=== PATIENT | male | born 1940 | race Caucasian/White ===

== ENCOUNTER 2024-09-20 09:03 | Emergency (ER) | payer OTHER, SELFPAY ==
[2024-09-20] VITALS (9 sets, daily range): BP systolic 97–179; BP diastolic 60–113; PULSE 70–90; BMI 25.1
[2024-09-20 09:41] LABS: % Basophils 2.1 % (0-2); % Eosinophils 2.3 % (0-6); % Immature Granulocytes 0.2 % (0-0.5); % Lymphocytes 16.4 % (20.5-51.1); % Monocytes 8.3 % (1.7-9.3); % Neutrophils 70.7 % (42.2-75.2); Absolute Basophils 0.1 10^3/uL (0-0.2); Absolute Eosinophils 0.1 10^3/uL (0-0.7); Absolute Lymphocytes 0.9 10^3/uL (1.2-3.4); Absolute Monocytes 0.4 10^3/uL (0.1-0.6); Absolute Neutrophils 3.7 10^3/uL (1.4-6.5); Hemoglobin 14.2 g/dL (13.0-18.0); Mean Corp Hgb Conc. 34.6 g/dL (33.0-37.0); Mean Corpuscular Hgb 32.5 pg (27.0-31.0); Mean Corpuscular Volume 93.8 fL (80.0-94.0); Nucleated Red Blood Cells % 0 % (-); Platelet Count 278 10^3/uL (130-400); Red Blood Cell Count 4.37 10^6/uL (4.70-6.10); White Blood Cell Count 5.2 10^3/uL (4.8-10.8)
[2024-09-20 09:48] LABS: ALT (SGPT) 19 U/L (0-50); AST (SGOT) 30 U/L (17-59); Albumin 4.6 g/dl (3.5-5.0); Alkaline Phosphatase 53 U/L (38-126); Blood Urea Nitrogen 14 mg/dl (9-20); Calcium 10.4 mg/dl (8.4-10.2); Carbon Dioxide 28 mmol/L (22-30); Chloride 104 mmol/L (98-107); Glucose 96 mg/dl (70-99); Potassium 4.3 mmol/L (3.5-5.1); Sodium 142 mmol/L (135-145); Total Bilirubin 0.8 mg/dl (0.2-1.3); Total Protein 7.4 g/dl (6.3-8.2); eGFR > 60.00
--- NOTE | 2024-09-20 10:00 | ED.GENMED ---
History of Present Illness
General
Chief Complaint: Fainting/Passed Out
Source: patient
Exam Limitations: none
Time Seen by Provider: 09/20/24 09:29
Nursing documentation reviewed up to this point in time: agreed with
History of Present Illness
History of Present Illness:
83-year-old male presenting to the emergency department today with concerns of 3 syncopal episodes a few weeks ago. No symptoms since no chest pain shortness of breath nausea vomiting numbness weakness since. He claims that he spoke with some
friends today that prompted him to come to the ER for assessment.
Past History
Past History
ED Past Medical History: None
ED Past Surgical History: None
Social History
Tobacco: Non-smoker
Review of Systems
Review of Systems
Allergies reviewed?: Yes
All Other Systems: ROS reviewed and negative except as documented in HPI and ROS
Phy Exam
Physical Exam
Physical Exam:
GENERAL: Alert , in no apparent distress
EYE: pupils equal and reactive
NECK: Supple, no significant adenopathy.
ENT: o/p clr, mmm.
CARDIAC: Regular rate and rhythm .
LUNGS: Clear breath sounds bilaterally, no acute respiratory distress, no wheezes/rales/rhonchi
ABDOMEN: Soft, without focal tenderness, no r/g, no cvat
NEUROLOGICAL: Alert and oriented, no focal neuro deficits
SKIN: Warm and dry, skin intact.
MUSCULOSKELETAL: No edema, well perfused.
PSYCH: Normal and appropriate interaction.
Course
Orders/Labs/Results
Orders:
Orders
09/20/24 09:05
Electrocardiogram (*1) Urgent
Reason for Study: Syncope
EKG- Treatment ONCE
09/20/24 09:30
Troponin I Urgent
09/20/24 09:31
CMP [Comprehensive Metabolic Panel] Urgent
Complete Blood Count/With Diff Urgent
09/20/24 12:22
Orthostatic VS- Treatment ONCE
Abnormal Lab Results
09/20/24
09:31
RBC 4.37 L 10^6/uL
(4.70-6.10)
MCH 32.5 H pg
(27.0-31.0)
Absolute Lymphs (auto) 0.9 L 10^3/uL
(1.2-3.4)
Lymphocytes % 16.4 L %
(20.5-51.1)
Basophils % 2.1 H %
(0-2)
Calcium 10.4 H mg/dl
(8.4-10.2)
09/20/24 09:31
09/20/24 09:31
Vital Signs
Initial and Last Documented VS:
Initial Vital Signs
Temp Pulse Resp BP
98.2 F 65 16 179/103
09/20/24 09:15 09/20/24 09:15 09/20/24 09:15 09/20/24 09:15
Last Documented Vital Signs
Temp Pulse Resp BP Pulse Ox
98.2 F 47 15 136/80 97
09/20/24 09:15 09/20/24 13:00 09/20/24 13:00 09/20/24 13:00 09/20/24 13:00
MDM/Problems Addressed
MDM/Problems Addressed:
83-year-old male presenting to the emergency department with concerns of 3 syncopal episodes a few weeks ago no ongoing symptoms since. No chest pain shortness breath or palpitations associated. No trauma sustained. On arrival blood pressure
elevated otherwise vital signs are normal. Labs unremarkable. EKG did have sinus arrhythmia and some brief pauses. The case was discussed with cardiology they came and see the patient and started him on a monitor and schedule close outpatient
follow-up otherwise he was doing well throughout the ER stay. Return precautions given.
*Critical Care Note
Total Time (30-74mins, 75-104mins- exclusive of procedures): Not Applicable
ED Attending Note
-
Portions of this chart may have been created with voice recognition software.� Occasional wrong word or��sound alike� substitutions may have occurred due to the inherent limitations of voice recognition software.
Discharge Plan
Departure
Patient Disposition: Home (Routine Discharge)
Date of Disposition: 09/20/24
Time of Disposition: 13:22
Patient with high blood pressure during this ER visit?: No
Condition: Good
Covid-19: Not Applicable
Discharge Problem:
Sinus arrhythmia
Instructions: Syncope (Fainting) (DC)
Prescriptions:
No Action
cholecalciferol (vitamin D3) [Vitamin D3] 1,000 UNIT capsule
1,000 unit PO DAILY
sennosides [senna] 1 TABLET tablet
2 tab PO BID 0RF
docusate sodium 100 MG capsule
100 mg PO BID 0RF
lorazepam 1 MG tablet
1 mg PO Daily PRN (Reason: anxiety/pain) Qty: 20 0RF
hydrocodone-acetaminophen [Leslie] 1 EACH tablet
1 ea PO Q6H PRN (Reason: moderate-severe pain) Qty: 30 0RF
Rx Instructions:
Take 1 tablet every 6 hours as needed for moderate-severe pain
acetaminophen 500 MG tablet
500 mg PO QID Qty: 1 0RF
Rx Instructions:
standing order
Referrals:
Rk Keating MD [Active] - Follow up in 5-7 days
Kami Borges PA-C [Specified Professional Personl] - 10/11/24 2:00 pm (You have a cardiology follow-up appointment at the [place] office. Please call with questions)
Horace Mccarthy DO [Family Provider] -
Activity Restrictions/Additional Instructions:
You came to the emergency department today with concerns of syncopal episodes. Here you are found to have some brief pauses in your cardiac rhythm. You are placed in a monitor and will need to follow-up closely with cardiology. Return to the
emergency department for any worsening, new or concerning symptoms.
Interventions
Interventions:
*Risk Screen - Suicide Last Done: 09/20/24 09:15
*General Assessment Last Done: 09/20/24 09:15
*Neglect/Abuse Screening Last Done: 09/20/24 09:15
*ED COVID-19 Vaccine History Last Done: 09/20/24 10:35
Discharge Date and Time
Print Language: UKRAINIAN
[2024-09-20 11:10] LABS: Troponin I < 0.012 ng/ml
--- NOTE | 2024-09-20 12:41 | CON.CAR ---
Addendum entered and electronically signed by Rk Keating MD 09/20/24 16:19:
I saw and examined the patient.
The Clasp Machine Operator's note was reviewed and I agree with the note.
Comment: Briefly, 83-year-old man past medical history of mild cognitive impairment who presents for evaluation after multiple syncopal episodes which have occurred over approximately 4 to 6 weeks. We are asked to comment on possible cardiac cause
of these episodes.
Patient is unfortunately a poor historian which makes ascertaining the cause of these episodes difficult
Tells me the last syncopal episode was several weeks ago at this point and overall he feels well today
Physical exam is unremarkable
Twelve-lead ECG and telemetry reviewed, they show sinus arrhythmia, but no significant pauses or high-grade AV block noted
To to further evaluate for arrhythmias we will place 1 week outpatient gambling monitor today in the ER prior to discharge
Consider outpatient transthoracic echocardiogram, to be discussed at follow up
Cardiology follow-up arranged
Rest per Nanci Garcia
Original Note:
Consultation
Consultation Request
Date/Time Consultation Performed: 09/20/24
Requesting Provider: Foreign Truong PA-C
Performing Provider: Nanci Garcia PA-C for Dr. Keating
Reason for Consultation: syncope, recurrent
Medical History
-
Chief Complaint: syncope
History of Present Illness:
Patient is an 83 yo M with PMH of HLD, s/p lumbar laminectomy 2020, spinal stenosis, OA who presented to [facility] ER upon referral from his primary care physician for evaluation of syncopal events. Patient is a poor historian, and does
admit to having some memory issues, although no definitive diagnosis of dementia at the present time. Who lives alone independently. A neighbor/friend accompanies him to the ER today. He reports approximately 4 weeks ago he had an episode of
presumed syncope while he was biking home from [facility]. He reports he was standing at a red light waiting to continue biking, and looked down and felt like his feet were moving. He then states he woke up on the ground. He states he 'popped right
back up', got back on his bike and rode home without difficulty or recurrence of symptoms. He states then for several weeks he had no recurrences until approximately 2 weeks ago. He reports in the middle of the night, he was trying to get out of
bed. He does recall being 'wrapped up in the sheets' and then states he felt versus had syncopal event when he stood up, although reports he was 'still asleep'. Then several days later had another episode in the living room where he felt as though
he was trying to grab onto something and ended up holding onto a light stand and falling versus syncope. He denies prodrome with clear lightheadedness or dizziness. He reports no chest pain, shortness of breath, palpitations. He denies recent
medication changes, dietary changes, new supplements. He denies significant alcohol use. Reports he has had worsening back pain in the last 3 to 4 months, however generally this has not limited his activity, and did not have pain preceding his
fall/syncopal episodes. Denies cardiac history. Cardiology consulted for evaluation.
PMH:
HLD
Spinal stenosis
OA
History of lumbar laminectomy 2020
Memory issues
Past Medical History
Past Medical History: Other (in HPI)
Social History
Tobacco: Non-Smoker
Living: Alone
Employment: Retired
Family History
Family History: CAD (CABg in father)
Allergies / Home Medications
Allergy/AdvReac Type Severity Reaction Status Date / Time
No Known Allergies Allergy Verified 09/20/24 09:15
�Medication �Instructions �Recorded �Confirmed �Type
cholecalciferol (vitamin D3) 25 1,000 unit PO DAILY 11/13/19 11/21/19 History
mcg (1,000 unit) capsule (Vitamin
D3)
acetaminophen 500 mg tablet 500 mg PO QID #1 tab 11/22/19 Rx
docusate sodium 100 mg capsule 100 mg PO BID 11/22/19 Rx
hydrocodone 10 mg-acetaminophen 1 ea PO Q6H PRN moderate-severe 11/22/19 Rx
325 mg tablet ([place]) pain #30 tabs
lorazepam 1 mg tablet 1 mg PO Daily PRN anxiety/pain #20 11/22/19 Rx
tabs
sennosides 8.6 mg tablet (senna) 2 tab PO BID 11/22/19 Rx
Review of Systems
-
History Source: Patient and Other (friend)
All other systems: Negative unless noted
Physical Exam
Vital Signs
Temp Pulse Resp BP Pulse Ox
98.2 F 76 11 146/97 97
09/20/24 09:15 09/20/24 10:33 09/20/24 10:33 09/20/24 10:33 09/20/24 10:33
Lab Results
09/20/24 09:31
09/20/24 09:31
Troponin I < 0.012 ng/ml 09/20/24 09:30
Physical Exam
General: No Apparent Distress and Comfortable
HEENT: Normocephalic, Anicteric and Moist Mucous Membranes
Respiratory: Clear and Non Labored Respirations
Cardiac: S1/S2 and Regular Rhythm
GI: Soft, Non Tender, Non Distended and Normal Bowel Sounds
Musculoskeletal: No Clubbing, No Cyanosis and No Edema
Skin: Warm and Dry
Neuro: AO x 3
Impression / Plan
-
Primary Client Services Representative: none prior to admission
Assessment:
Presentation with recurrent fall vs syncope
Sinus arrhythmia
HLD
Spinal stenosis
OA
History of lumbar laminectomy 2019
Memory issues
Stress echo 2020: normal @10 METS of activity
Plan:
-Patient presents with 3 fall vs syncopal episodes in last ~4 weeks. etiology unclear at this time. patient a poor historian.
-Trop negative x1. no CP. EKG with sinus arrhythmia, no acute ST abnormalities
-last stress test from 2020 as above
-check ortho VS
-arranged for 1 week [place] monitor (concern for patient compliance with rhythm star monitor), to be placed prior to DC from ER
-we discussed no driving/biking until monitor resulted
-OP cardiac follow up arranged
-d/w patient and friend at bedside. d/w ER PA
Data Reviewed
-
EKG: Tracing Personally Visualized and interpreted
Medical Tests (Nuc Med, Echo etc): Report Reviewed by me
Labs: Labs Reviewed by me
Old Records: Reviewed
== END 2024-09-20 14:09 | disposition home or self-care (01) ==
LOC: EMR 09:03
PROVIDERS: Physician Assistant; EMERGENCY PHYSICIAN Emergency Medicine; FAMILY PHYSICIAN Internal Medicine
DX: I49.8 Other specified cardiac arrhythmias (principal); E78.00 Pure hypercholesterolemia, unspecified; M19.90 Unspecified osteoarthritis, unspecified site; M48.00 Spinal stenosis, site unspecified; Z60.2 Problems related to living alone; Z82.49 Family history of ischemic heart disease and other diseases of the circulatory system
CPT/HCPCS: 99283; 80053; 84484; 85025; 93005

== ENCOUNTER → 2025-01-02 10:23 | Outpatient (REF) | payer OTHER, SELFPAY | LOC: PAVMRI 10:23 | PROVIDERS: ATTENDING PHYSICIAN Internal Medicine | DX: R41.3 Other amnesia (principal) | CPT/HCPCS: 70551 ==

== ENCOUNTER → 2025-02-21 12:24 | Outpatient (REF) | payer OTHER, SELFPAY ==
[2025-02-21 13:48] LABS: Urine Albumin 2+ (Neg - Trace); Urine Bilirubin Negative (Negative); Urine Character Clear (Clear); Urine Color Yellow; Urine Glucose Negative (Negative); Urine Ketone Negative (Negative); Urine Leukocyte Negative (Negative); Urine Nitrite Negative (Negative); Urine Occult Blood Negative (Negative); Urine Urobilinogen Negative (Neg - 1+)
[2025-02-21 14:30] LABS: ALT (SGPT) 19 U/L (0-50); AST (SGOT) 28 U/L (17-59); Albumin 4.3 g/dl (3.5-5.0); Alkaline Phosphatase 69 U/L (38-126); Blood Urea Nitrogen 16 mg/dl (9-20); Calcium 10.4 mg/dl (8.4-10.2); Carbon Dioxide 27 mmol/L (22-30); Chloride 104 mmol/L (98-107); Glucose 85 mg/dl (70-99); HDL Cholesterol 49 mg/dl; LDL Cholesterol, Calculated 161 mg/dl; Potassium 4.7 mmol/L (3.5-5.1); Sodium 140 mmol/L (135-145); Total Bilirubin 1.4 mg/dl (0.2-1.3); Total Cholesterol 227 mg/dl (50-199); Total Protein 7.3 g/dl (6.3-8.2); Triglyceride 89 mg/dl (10-149); Very Low Density Lipoprotein 17 mg/dl (0-30); eGFR 59.63
[2025-02-21 15:00] LABS: Urine Bacteria Few (Negative); Urine Red Blood Cell 0-2 /HPF (0-2)
[2025-02-21 17:38] LABS: TSH 3.25 uIU/ml (0.47-4.68)
[2025-02-21 18:14] LABS: Vitamin B12 254 pg/ml (239-931)
[2025-02-24 09:39] LABS: Intact PTH 101.7 pg/ml (13.6-85.8)
== END ==
LOC: REG 12:24
PROVIDERS: ATTENDING PHYSICIAN Internal Medicine
DX: E03.9 Hypothyroidism, unspecified (principal); E78.2 Mixed hyperlipidemia; N40.0 Benign prostatic hyperplasia without lower urinary tract symptoms; E21.3 Hyperparathyroidism, unspecified; R41.3 Other amnesia
CPT/HCPCS: 36415; 80053; 80061; 81003; 81015; 82607; 82746; 83970; 84443

== ENCOUNTER 2025-04-26 21:42 | Inpatient (IN) | payer OTHER, SELFPAY ==
[2025-04-26] VITALS (10 sets, daily range): BP systolic 98–146; BP diastolic 60–89; BMI 23.6
[2025-04-26 17:26] LABS: ALT (SGPT) 21 U/L (0-50); AST (SGOT) 29 U/L (17-59); Albumin 3.8 g/dl (3.5-5.0); Alkaline Phosphatase 60 U/L (38-126); Blood Urea Nitrogen 31 mg/dl (9-20); Calcium 10.1 mg/dl (8.4-10.2); Carbon Dioxide 24 mmol/L (22-30); Chloride 104 mmol/L (98-107); Estimated Creatinine Clearance 40 ml/min; Glucose 118 mg/dl (70-99); Potassium 3.9 mmol/L (3.5-5.1); Sodium 133 mmol/L (135-145); Total Bilirubin 1.5 mg/dl (0.2-1.3); Total Protein 6.6 g/dl (6.3-8.2); eGFR 45.62
--- NOTE | 2025-04-26 17:29 | ED.GENMED ---
History of Present Illness
General
Chief Complaint: Chest Pain
Source: patient
Time Seen by Provider: 04/26/25 17:18
History of Present Illness
History of Present Illness:
84-year-old male presents to the emergency room complaining of chest pain. Patient is accompanied by his son. Patient has some cognitive decline at baseline but son feels he is also a bit more confused than normal. Patient been complaining of
left-sided chest pain for the past day or so. He is also mention that he feels short of breath. Pain seems to be worse with deep breath. No significant cough or fever. No known trauma. Patient does not take any prescription medications.
Past History
Past History
ED Past Medical History: None
ED Past Surgical History: None
Social History
Tobacco: Non-smoker
Phy Exam
Physical Exam
Physical Exam:
General: Awake, Alert, Orientedx 2. No acute distress.
Vitals: unremarkable
Head: Atraumatic
Eyes: Pupils equal, EOMI
Throat: Airway intact, no exudates
Neck: Trachea midline
Chest: No significant tenderness palpation, no crepitance
Lungs: Clear and equal b/l
Heart: Regular rate, no murmurs
Abd: Soft, Nontender, No pulsatile mass
Neuro: Nonfocal
Skin: Warm, dry, no rash
Extremities: pulses equal b/l, no edema
Scores
Heart Score for Chest Pain Patients
STEMI patient?: Not applicable
Course
Orders/Labs/Results
Orders:
Orders
04/26/25 Dinner
Regular
At Your Request: Limited Participation
04/26/25 15:49
EKG [Electrocardiogram (*1)] Urgent
Reason for Study: Chest Pain
EKG- Treatment ONCE
04/26/25 16:49
CXR2 [CR Chest - 2 Views ] Urgent
Comment:
Reason For Exam: cp
04/26/25 16:59
Complete Blood Count/With Diff Urgent
Comprehensive Metabolic Panel Urgent
D-Dimer Urgent
Troponin I Urgent
04/26/25 17:55
CT Chest Angio W/wo Iv Contras Urgent
Comment:
Reason For Exam: chest pain, abd cxr
04/26/25 20:14
Cefepime HCl [Maxipime] 2,000 mg IV NOW STA
04/26/25 20:16
Urinalysis Reflex To Culture Urgent
Date Specimen was Collected: 04/26/25
Time Specimen was Collected: 20:11
Urine Microscopic Reflex Cult Urgent
04/26/25 20:18
CT Head W/o Iv Contrast Urgent
Comment:
Reason For Exam: confusion, altered mental status
04/26/25 20:26
Blood Culture Urgent
TJ Source: Blood/Venous
Specimen Description:
04/26/25 20:31
Blood Culture Q30M
TJ Source: Blood/Venous
Specimen Description:
04/26/25 20:39
Piperacillin/Tazo 3.375 Gram [Zosyn] 3.375 gram in 50 ml IV NOW
04/26/25 20:45
Blood Culture Q30M
TJ Source: Blood/Venous
Specimen Description:
04/26/25 20:53
Blood Culture Q30M
TJ Source: Blood/Venous
Specimen Description:
04/26/25 21:01
Admit/Transfer Patient As Directed
Co-Sign Provider:
Level of Care: Inpatient admission
Assign to:: Medical/Surgical
Physician / Group: Efrain
Diagnosis: Pneumonia
Reason for Hospitalization: Cavitary pneumonia
Expected length of stay greater than two midnights?: Yes
ELOS- Estimated Length of Stay in days: 2
I certify the patient meets the requirements for IP care: Yes
Vancomycin [Vancocin] 2,000 mg 0.9% Sodium Chloride 500 ml [Nss] 500 ml IV NOW
PRN Pain Medication Management As Directed
May give lesser potent ordered pain med per pt: Yes
preference::
Protocol:: Medication orders for pain may be administered in a
manner that supports deferring to patient preference
when the pt is:
- Requesting an ordered lesser potent pain medication.
Least to most potent pain medications are defined
as: acetaminophen < NSAID < tramadol < opioids
(morphine, oxycodone, hydromorphone).
- Requesting a lesser dose of the same medication IF
ORDERED.
- Requesting a less intrusive route of administration
if both routes are prescribed by the provider (PO <
IV).
04/26/25 21:02
Code Status As Directed
Resuscitation Status: Full Code
04/26/25 22:24
0.9% Sodium Chloride 1000 ml [Nss] 1,000 ml IV 100 mls/hr
Acetaminophen [Tylenol] 650 mg PO Q4HPRN PRN
Magnesium Hydroxide [Milk of Magnesia] 30 ml PO Q4HPRN PRN
Ondansetron Injectable [Zofran] 4 mg IV Q6HPRN PRN
VANCOMYCIN Pharmacy to Dose [VANCOCIN Pharmacy to Dose] 1 each Pharmacy To Prepare [Call Pharmacy To Prepare] 0 ml IV PER PROTOCOL
04/26/25 22:24
INFECTIOUS DISEASE CONSULT Routine
Consulting Provider: Emiliana Hansen
Was physician already notified: Yes
Reason for consult: cavitary pneumonia
Respiratory Culture/Gram Stain Urgent
TJ Source: Sputum
Specimen Description:
Activity As Directed
Activity Level: Out of Bed-Early Mobility
Intake/ Output As Directed
Frequency: Per unit guidelines
Orthostatic Vital Signs As Directed
Orthostatic VS Frequency: Daily
Vital Signs As Directed
Frequency: Per unit guidelines
Weight As Directed
Frequency: Once
Comment: on admission
Pulse Ox/cont/shift [RESP] Routine
Quantity: 1
Special Instructions: notify provider if SPO2 < 91%
Pt Eval And Treat Routine
Activity Level: With Assistance
DX Deep Vein Thrombosis Video Routine
04/26/25 22:35
Vancomycin MRSA PCR Screen Routine
TJ Source: N
Specimen Description:
Comment: Changed per pharmacy protocol
04/26/25 23:07
Legionella Urinary Antigen Routine
TJ Source: Urine
Specimen Description:
Strep pneumoniae Antigen Routine
TJ Source: Urine
Specimen Description:
04/27/25 04:00
Piperacillin/Tazo 3.375 Gram [Zosyn] 3.375 gram in 50 ml IV Q6H
04/27/25 05:30
Basic Metabolic Panel IN AM
CRP [C-Reactive Protein] IN AM
Complete Blood Count/No Diff IN AM
ESR [Erythrocyte Sed Rate] IN AM
TSH Reflex To Free T4 IN AM
04/27/25 08:00
Cholecalciferol (Vitamin D3) [VITAMIN D3 (cholecalciferol)] 50 mcg PO DAILY
04/27/25 18:00
Enoxaparin Sodium [Lovenox] 40 mg SC QPM
Abnormal Lab Results
04/26/25 04/26/25
16:59 20:16
WBC 22.6 H 10^3/uL
(4.8-10.8)
RBC 3.89 L 10^6/uL
(4.70-6.10)
Hgb 12.3 L g/dL
(13.0-18.0)
Hct 36.3 L %
(39.0-52.0)
MCH 31.6 H pg
(27.0-31.0)
Abs Immat Gran (auto) 1.4 H 10^3/uL
(0-0.05)
Absolute Neuts (auto) 19.2 H 10^3/uL
(1.4-6.5)
Absolute Lymphs (auto) 0.7 L 10^3/uL
(1.2-3.4)
Absolute Monos (auto) 1.3 H 10^3/uL
(0.1-0.6)
Immature Gran % 6.1 H %
(0-0.5)
Neutrophils % 84.7 H %
(42.2-75.2)
Lymphocytes % 3.2 L %
(20.5-51.1)
D-Dimer 10.36 H ug/mlFEU
(0.00-0.50)
Sodium 133 L mmol/L
(135-145)
BUN 31 H mg/dl
(9-20)
Creatinine 1.5 H mg/dL
(0.7-1.3)
Glucose 118 H mg/dl
(70-99)
Total Bilirubin 1.5 H mg/dl
(0.2-1.3)
Ur Occult Blood Reflex 3+ A
(Negative)
Urine Bacteria (Reflex) Few A
(Negative)
Urine Albumin (Reflex) 2+ A
(Neg - Trace)
04/26/25 16:59
04/26/25 16:59
Vital Signs
Initial and Last Documented VS:
Initial Vital Signs
Temp Pulse Resp Pulse Ox
98.8 F 102 16 96
04/26/25 16:02 04/26/25 16:02 04/26/25 16:02 04/26/25 16:02
Last Documented Vital Signs
Temp Pulse Resp BP Pulse Ox
98 F 83 16 129/88 96
05/01/25 15:00 05/01/25 15:00 05/01/25 15:00 05/01/25 15:00 05/01/25 15:00
MDM/Problems Addressed
Differential Diagnosis Includes:
pneumonia, PE, effusion, ptx
MDM/Problems Addressed:
84-year-old male presents complaining of chest pain and confusion and forgetfulness. Workup here reveals a significantly elevated white blood cell count. Patient's renal function has bumped up a bit from baseline with a BUN 31 and a creatinine
1.5. Chest x-ray shows perhaps a tiny effusion and prominence of the mediastinum. CT of the chest was ordered which shows cavitary lesions and a infiltrate suggestive of necrotizing pneumonia. Patient will require hospitalization for treatment of
this and further evaluation. Case discussed with infectious disease who recommends Unasyn.
*Radiology
Radiology exam reviewed: preliminary read by ED provider (Personally viewed patient's chest x-ray and I see small effusion) and radiology read reviewed
*Pulse Oximetry
SaO2: 96
Oxygen Mode of Delivery: Room air
Patient hypoxic: no
*Critical Care Note
Total Time (30-74mins, 75-104mins- exclusive of procedures): Not Applicable
ED Attending Note
-
Portions of this chart may have been created with voice recognition software.� Occasional wrong word or��sound alike� substitutions may have occurred due to the inherent limitations of voice recognition software.
Discharge Plan
Departure
Patient Disposition: Admit
Date of Disposition: 04/26/25
Time of Disposition: 20:23
Admit to: Med/Surg
Presentation/result/management discussed w/ accepting MD/DO: Hospitalist
Condition: Fair
Discharge Problem:
Cavitary pneumonia
Interventions
Interventions:
*Risk Screen - Suicide Last Done: 04/26/25 23:32
*General Assessment Last Done: 04/26/25 16:46
*Neglect/Abuse Screening Last Done: 04/26/25 16:46
*ED- Fall Risk Assessment Last Done: 04/26/25 16:46
*ED COVID-19 Vaccine History Last Done: 04/26/25 23:32
*Nursing Disposition Last Done: 04/26/25 22:12
ED- Cardiac Assessment Last Done: 04/26/25 16:50
Discharge Date and Time
Discharge Date/Time: 04/26/25 22:12
[2025-04-26 17:38] LABS: Troponin I 0.013 ng/ml
[2025-04-26 17:52] LABS: Hematocrit 36.3 % (39.0-52.0); Hemoglobin 12.3 g/dL (13.0-18.0); Mean Corp Hgb Conc. 33.9 g/dL (33.0-37.0); Mean Corpuscular Hgb 31.6 pg (27.0-31.0); Mean Corpuscular Volume 93.3 fL (80.0-94.0); Mean Platelet Volume 9.6 fL (7.4-10.4); Platelet Count 178 10^3/uL (130-400); Red Blood Cell Count 3.89 10^6/uL (4.70-6.10); Red Cell Dist. Width 12.4 % (11.5-14.5); White Blood Cell Count 22.6 10^3/uL (4.8-10.8)
[2025-04-26 18:07] LABS: % Basophils 0.2 % (0-2); % Immature Granulocytes 6.1 % (0-0.5); % Lymphocytes 3.2 % (20.5-51.1); % Monocytes 5.8 % (1.7-9.3); % Neutrophils 84.7 % (42.2-75.2); Absolute Basophils 0.1 10^3/uL (0-0.2); Absolute Immature Granulocytes 1.4 10^3/uL (0-0.05); Absolute Lymphocytes 0.7 10^3/uL (1.2-3.4); Absolute Monocytes 1.3 10^3/uL (0.1-0.6); Absolute Neutrophils 19.2 10^3/uL (1.4-6.5); Nucleated Red Blood Cells % 0 % (-)
[2025-04-26 18:42] LABS: D-Dimer 10.36 ug/mlFEU (0.00-0.50)
--- NOTE | 2025-04-26 20:30 | HPS.HSE ---
Family Physician
-
Family Physician: Horace Mccarthy
Chief Complaint
-
Chest pain
History of Present Illness
This is a 84-year-old male presenting to the emergency department with a complaint of pleuritic chest pain.
Patient is quite confused at this time and history obtained from son. Patient is generally healthy and lives by himself and independent with ADLs. He is on no medications. He was last evaluated by physician a year ago for syncopal episodes with
extensive workup that was found to be negative
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 Son reports that patient has had recent episodes of forgetfulness in terms of when he places things but otherwise remembers all know names and faces. In the
last 2 days he has had significant decline in capacity. He appears confused and lethargic and unable to perform his ADLs. Son reported that the patient has been having trouble with deep inspiration complained of left-sided chest pain that is
pleuritic in nature. He appears to have increased shortness of breath and dyspnea on exertion but was not hypoxic at home. He has not been febrile. He has not had any known cough productive or otherwise. He has no recent travel. He has no known
sick contacts. Occupational history unknown at this time. He is a non-smoker and does not drink alcohol. He does report poor dentition.
In the emergency department the patient is afebrile, is satting 93% on room air. Blood pressure was 140/80 with a pulse of 101.
ECG shows normal sinus rhythm at a rate of [address] or T wave changes. Troponin was negative. D-dimer was elevated.
CBC shows marked leukocytosis 22.6 with left shift otherwise unremarkable. Electrolytes notable for sodium of 133 with otherwise normal potassium and chloride and bicarb. BUN and creatinine stable at 1 and 1.5.
Chest x-ray mostly unremarkable with some prominence of the ascending aorta.
CT of the chest with angiogram revealed several bilateral cavitary lesions throughout the lungs of likely infectious etiology. There is no PE. There is suggestions of moderate left lower lobe pneumonia. There are tiny pleural effusions left
lateral right.
Medical History
Past Medical History
Past Medical History: Reports None
Past Surgical History: Reports None
Social History
Tobacco: Non-smoker
Alcohol: None
Drug: None
Personal:
Living: Alone
Employment: Retired
Family History
Family History: Not pertinent
Allergies / Home Medications
Allergies reflects when Allergies were last updated in [employer].
Home Medications with original date entered in [employer]
Allergy/Medication List:
Allergies
Allergy/AdvReac Type Severity Reaction Status Date / Time
No Known Allergies Allergy Verified 04/26/25 16:45
Home Medications
cholecalciferol (vitamin D3) 50 mcg (2,000 unit) capsule 50 mcg PO DAILY 04/26/25
Review of Systems
-
History Source: Family
Constitutional: Reports No Symptoms
EENT: Reports No Symptoms
Respiratory: Reports Trouble Breathing
Cardiac: Reports No Symptoms
Abdomen/GI: Reports No Symptoms
: Reports No Symptoms
Musculoskeletal: Reports No Symptoms
Skin: Reports No Symptoms
Neurological: Reports No Symptoms
Endocrine: Reports No Symptoms
Hematologic/Lymphatic: Reports No Symptoms
Psych: Reports No Symptoms
Physical Exam
Vital Signs
Vital Signs
Temp Pulse Resp BP Pulse Ox
98.8 F 101 23 143/81 96
04/26/25 16:02 04/26/25 19:00 04/26/25 19:00 04/26/25 18:48 04/26/25 17:32
Physical Exam
General: Well Developed, Well Nourished and Conversant; No Respiratory Distress
HEENT: NormoCephalic, Anicteric, Moist mucous membranes, Atraumatic, PERRLA and Neck Nontender; No Good Dentition, Pharyngeal Erythema, Neck Mass or Oxygen
Respiratory: Clear, Non Labored Respirations and Other (chest pain induced with deep inspiration); No Wheezes, Rales, Rhonchi or Crackles
Cardiac: S1/S2 and Regular Rhythm
Breast: Deferred by me
GI: Soft, Non Tender and Non Distended
Rectal: Deferred by Provider
Genito-urinary: Deferred by me
Musculoskeletal: No Clubbing, No Cyanosis and No Edema
Skin: Warm
Neuro: Alert, Oriented (oriented to person and place only) and Nonfocal/grossly intact
Hematologic/Lymphatic: No Lymphadenopathy
Psych: Calm
Laboratory Results
-
04/26/25 16:59
04/26/25 16:59
Laboratory Results
Total Bilirubin 1.5 mg/dl (0.2-1.3) H 04/26/25 16:59
AST 29 U/L (17-59) 04/26/25 16:59
ALT 21 U/L (0-50) 04/26/25 16:59
Alkaline Phosphatase 60 U/L (38-126) 04/26/25 16:59
Troponin I 0.013 ng/ml 04/26/25 16:59
Data Reviewed
-
Diagnostic Radiology: Report Reviewed by me
CT Scan: Report Reviewed by me
Medical Tests (Nuc Med, Echo, EKG etc): Image Personally Visualized and interpreted
Lab Data: Labs Reviewed by me
Old Records: Reviewed
Impression/Plan
-
IMPRESSION:
84-year-old with no known significant past medical history presents to the emergency department With 2 Days of Worsening Confusion, Lethargy Shortness of Breath and Pleuritic Chest Pain. He is actually quite stable in the emergency department
afebrile, hemodynamically stable and not on supplemental oxygen. Did have elevated D-dimer. No ischemia on ECG. Chest x-ray is nonacute. CT angio of the chest without pulmonary embolism. There where several bilateral cavitary lesions throughout
the lungs of likely infectious origin. There is also findings suggestive of moderate left lower lobe pneumonia. There is trace bilateral pleural effusions larger on the left. Patient has significant leukocytosis of 22.6 with a moderate left
shift. His labs are otherwise unremarkable except for possibly mild dehydration.
Son reported that the patient lives in a damp apartment with concern for mold. Patient has not known to have recent cough, watery eyes, runny nose or other allergic symptoms. There was no wheezing on my exam. No peripheral eosinophilia.
PLAN:
1. Cavitary pneumonia - Given findngs on history and CT scan, diff dgx includes necrotizing pneumonia, nocardiosis and less likely septic embolism. Unlikely TB given no known risk factors or exposure. Cannot rule out malignancy but unlikely to
produce such an acute presentation.
- patient stable, admit to med/surg inpatient
- blood cultures sent
- no sputum for culture but will order
- check legionella ag/ pneumococcal ag
- despite additional concern from son, clinical picture and CT scan does not raise a high concern for cavitary or invasive aspergillosis, will consult ID
- continue zosyn, vanc for now
- mrsa swab
- check ESR/CRP
- Gentle hydration, supportive measures and pain control
2. Hyponatremia - suspect mostly due to dehydration but cannot rule out SIADH from pulmonary process
- hydrate overnight
3. JANAK - No h/o CKD/BPH
- IV fluids for now post contrast exposure
4. Confusion - No focal deficits. A&Ox2 (x3 at baseline). Suspect toxic/metabolic encephalopathy
- IV abx and hydration as above
DVT PPX - lovenox sq
Code status - Full code, D/W son Mr Axel Larkin
[2025-04-26 20:38] LABS: Urine Albumin 2+ (Neg - Trace); Urine Bilirubin Negative (Negative); Urine Character Clear (Clear); Urine Color Yellow; Urine Glucose Negative (Negative); Urine Ketone Negative (Negative); Urine Leukocyte Negative (Negative); Urine Nitrite Negative (Negative); Urine Occult Blood 3+ (Negative); Urine Urobilinogen 1+ (Neg - 1+); Urine pH 6.5 (5.0-9.0)
[2025-04-26 20:50] LABS: Urine Bacteria Few (Negative); Urine Red Blood Cell 0-2 /HPF (0-2); Urine Squamous Cell 0-2 /LPF (Few); Urine White Cell 0-2 /HPF (0-5)
[2025-04-26] MEDS: ZOSYN 50 IV (20:57)
[2025-04-26] MEDS: VANCOCIN 540 MG IV (21:40)
--- NOTE | 2025-04-26 21:42 | EDRN ---
call the patients son Norman at [phone] with any questions
[2025-04-26] MEDS: NSS 1000 IV (22:33)
--- NOTE | 2025-04-26 22:42 | PHA.VAN.IN ---
Assessment
- Assessment
Renal Function: SCR Appears Elevated from baseline (02/21/25 BASELINE SCR: 1.2)
Plan
- Plan
Initial / Loading Dose: 2GM
Maintenance Regimen: DOSING BY RANDOM LEVEL
Monitoring: RANDOM VANCOMYCIN LEVEL 04/27/25
Pharmacokinetics Vancomycin I
- -
Patient Age: 84
Patient Sex: Male
Vancomycin Day #: 1
Indication: Pulmonary/Respiratory
Requesting Provider: SARAH
Height / Weight:
Height 6 ft
Actual Weight 78.8 kg
- Vital Signs / Lab Results
Temp Pulse Resp BP Pulse Ox
97.9 F 93 18 133/87 97
04/26/25 22:29 04/26/25 22:29 04/26/25 22:29 04/26/25 22:29 04/26/25 22:29
Lab Results - Hematology
04/26/25
16:59
WBC 22.6 H
Lab Results - Chemistry
04/26/25
16:59
BUN 31 H
Creatinine 1.5 H
Estimated Creat Clear 40
Albumin 3.8
Lab Results - Urine
04/26/25
20:16
Urine Nitrite (Reflex) Negative
Leukocyte Esterase Rfl Negative
Urine WBC (Reflex) 0-2
Ur Squamous Epith Cells 0-2
Urine Bacteria (Reflex) Few A
--- NOTE | 2025-04-26 23:30 | PTCARENOTE ---
Received pt from ED to around 2230. pt on stretcher, confused, but able to ambulate to bed with assistance. bed alarm placed under pt due to confusion. pt only oriented to self. pt assessed, vitals obtained-see flowsheets. Pts call maier within
reach. attempted to educate on calling for assistance. Will continue to monitor.
[2025-04-27] MEDS: ZOSYN 50 IV ×4 (03:22→23:43)
[2025-04-27 04:53] VITALS: BMI 24.5
[2025-04-27 06:31] LABS: Hematocrit 36.2 % (39.0-52.0); Hemoglobin 12.5 g/dL (13.0-18.0); Mean Corp Hgb Conc. 34.5 g/dL (33.0-37.0); Mean Corpuscular Hgb 31.6 pg (27.0-31.0); Mean Corpuscular Volume 91.6 fL (80.0-94.0); Mean Platelet Volume 10.1 fL (7.4-10.4); Platelet Count 184 10^3/uL (130-400); Red Blood Cell Count 3.95 10^6/uL (4.70-6.10); Red Cell Dist. Width 12.4 % (11.5-14.5); White Blood Cell Count 18.6 10^3/uL (4.8-10.8)
[2025-04-27 06:35] LABS: Vancomycin Random 16.5 ug/ml
[2025-04-27 06:48] LABS: Erythrocyte Sed Rate 20 mm/hour (0-20)
[2025-04-27 06:50] LABS: Blood Urea Nitrogen 24 mg/dl (9-20); Calcium 9.7 mg/dl (8.4-10.2); Carbon Dioxide 26 mmol/L (22-30); Chloride 108 mmol/L (98-107); Estimated Creatinine Clearance 46 ml/min; Glucose 109 mg/dl (70-99); Potassium 3.9 mmol/L (3.5-5.1); Sodium 137 mmol/L (135-145); eGFR 54.17
[2025-04-27 07:10] VITALS: BP 140/85
[2025-04-27 07:19] LABS: TSH Reflex To Free T4 5.93 uIU/ml (0.47-4.68)
--- NOTE | 2025-04-27 07:40 | PHA.VAN.FU ---
Vancomycin Assessment / Plan
- Assessment
Renal Function: SCR Decreasing (1.3 from 1.5 yesterday)
WBC's are: Trending Down (18.6 from 22.6 yesterday)
In the past 24 hrs, patient has been: Afebrile
Concomitant Antimicrobials: Zosyn
- Assessment - Therapeutic Drug Monitoring
Random Level: 16.5
- Dosing Plan
Continue: Vancomycin dosed by levels
Dosing by Level: Re-dose today (Vancomycin 1250 mg IV x1)
- Monitoring Plan
Random Level: 04/28/25 @0600
- Follow Up
Pharmacy will continue to follow.
Vancomycin Follow UP
- -
Patient Age: 84
Patient Sex: Male
Vancomycin Day #: 2
Indication: Pulmonary/Respiratory
Requesting Provider: SARAH
Pertinent Antimicrobial Allergies:
NKDA
Height / Weight:
Height 6 ft
Actual Weight 81.737 kg
- Vital Signs / Lab Results
Temp Pulse Resp BP Pulse Ox
97.9 F 93 18 133/87 95
04/26/25 22:29 04/26/25 22:29 04/26/25 22:29 04/26/25 22:29 04/27/25 04:00
Lab Results - Hematology
04/26/25 04/27/25
16:59 05:30
WBC 22.6 H 18.6 H
Lab Results - Chemistry
04/26/25 04/27/25
16:59 05:30
BUN 31 H 24 H
Creatinine 1.5 H 1.3
Estimated Creat Clear 40 46
Albumin 3.8
Lab Results - Urine
04/26/25
20:16
Urine Nitrite (Reflex) Negative
Leukocyte Esterase Rfl Negative
Ur Squamous Epith Cells 0-2
Therapeutic Drug Monitoring
Random Vancomycin 16.5 ug/ml 04/27/25 05:30
[2025-04-27 07:58] LABS: Free T4 0.98 ng/dl (0.78-2.19)
[2025-04-27 08:44] VITALS: BP 110/66; BP 118/72; BP 96/65; PULSE 73; PULSE 80; PULSE 92
[2025-04-27] MEDS: NSS IV ×2 (08:52→19:33)
[2025-04-27] MEDS: VITAMIN D3 (cholecalciferol) 50 MCG PO (08:52)
[2025-04-27] MEDS: VANCOCIN 275 MG IV (08:54)
[2025-04-27 09:52] VITALS: BP 134/78; BP 150/95; PULSE 87; O2SAT 100
[2025-04-27] MEDS: ZOSYN IV (11:26)
--- NOTE | 2025-04-27 11:53 | CM ---
Addendum entered by Josh Sneed 04/27/25 14:18:
PT and OT evaluations noted. Both pt and his son are aware. VN choices provided, [facility] chosen.
A referral to [facility] made.
Original Note:
CM following re: discharge planning.
Reviewed pt's chart, met with pt and pt's son Norman at bedside.
Pt is an 84 year old male, admitted with primary dx of PNA.
Pt reports he lives alone in an apartment, no steps, has supportive son Norman who lives nearby and helps as needed: shopping, light cleaning, etc. 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 No DME, VN or SNF history.
PT and OT will evaluate the pt to determine a level of care at discharge.
PCP: Horace Mccarthy
Pharmacy: [facility].
D/C plan: home with anticipated no needs vs VN if recommended.
CM will follow with discharge plan updates as hospitalization progresses
--- NOTE | 2025-04-27 12:12 | CON.ID ---
Consultation
-
Date/Time Consultation Requested: April 26, 2025
Date/Time Consultation Performed: April 27, 2025
Requesting Provider: Dr. Heath Zuniga
Performing Provider: Dr. Emiliana Hansen
Reason for Consultation: Cavitary pneumonia
Chief Complaint / Past History
Chief Complaint
Confusion
History of Present Illness
84-year-old male with history of HLD who presented to the ER on April 26 due to day history of acute lethargy and confusion. Patient reports that he has been coughing for about a week with phlegm production. He also was complaining of left lower
chest pain worse with deep breathing. He reports subjective fever and chills. In ED white count 22.6. CT angiogram of the chest large left lower lobe opacity with few cavitary lesions bilaterally. Head CT no acute pathology. He is currently on
vancomycin and Zosyn. He states he feels a little bit better. He admits to having seen a dentist for quite some time. No dental pain. No sweats. No weight loss.
Past History
Additional Past Medical History:
HLD
L3-L5 lumbar laminectomy and fusion
Allergy History:
No Known Allergies Allergy (Verified 04/26/25 16:45)
Medications Reviewed: Yes
Current Antibiotics:
Vancomycin
Zosyn
Social History
Tobacco: Non-Smoker
Alcohol: None
Drug: None
Living: Alone
Family History
Family History: Not Pertinent
Review of Systems
Review of Systems
General: Fever, Chills and Change in Appetite
HEENT: Negative Sinus Problems, Headache or Pharyngitis
Cardiovascular: Chest Pain; Negative Edema
Respiratory: Dyspnea and Cough
Gasteroenterology: Nausea; Negative Vomiting or Diarrhea
Genital / Urological: Negative Dysuria or Flank Pain
Endocrine: Weakness
Neurological: Negative Dizziness
All systems: All other systems were reviewed and were negative
Vital Signs
Temp Pulse Resp BP Pulse Ox
98.3 F 90 18 140/85 98
04/27/25 07:10 04/27/25 07:10 04/27/25 07:10 04/27/25 07:10 04/27/25 07:10
Physical Exam
Physical Exam
Constitutional: Comfortable
Head: Other (No frontal or maxillary sinus tenderness)
Eyes: No Conjunctival Hemorrhage, Sclera Anicteric and Other (Slight right ptosis)
Oral: Poor Dentition (Upper dentures in place; lower teeth poor)
Cardiovascular: Regular Rate and S1/S2
Pulmonary: Rales (left base crackles and decreased BS)
Gastrointestinal: Soft, Non Tender, Non Distended and Normal Bowel Sounds
Genito-Urinary: Negative CVA Tenderness
Extremities: Negative Edema
Neurological: Awake and Alert; Negative Oriented
Psychological: Confused
Lab / Diagnostic Study Results
04/27/25 05:30
04/27/25 05:30
Abs Immat Gran (auto) 1.4 10^3/uL (0-0.05) H 04/26/25 16:59
Absolute Neuts (auto) 19.2 10^3/uL (1.4-6.5) H 04/26/25 16:59
Absolute Lymphs (auto) 0.7 10^3/uL (1.2-3.4) L 04/26/25 16:59
Absolute Monos (auto) 1.3 10^3/uL (0.1-0.6) H 04/26/25 16:59
Absolute Basos (auto) 0.1 10^3/uL (0-0.2) 04/26/25 16:59
Immature Gran % 6.1 % (0-0.5) H 04/26/25 16:59
Neutrophils % 84.7 % (42.2-75.2) H 04/26/25 16:59
Lymphocytes % 3.2 % (20.5-51.1) L 04/26/25 16:59
Monocytes % 5.8 % (1.7-9.3) 04/26/25 16:59
Eosinophils % 0.0 % (0-6) 04/26/25 16:59
Basophils % 0.2 % (0-2) 04/26/25 16:59
ESR 20 mm/hour (0-20) 04/27/25 05:30
C-Reactive Protein 227.50 mg/L (0.0-10.00) H 04/27/25 05:30
Ur Squamous Epith Cells 0-2 /LPF (Few) 04/26/25 20:16
Microbiology Results
Micro:
04/26/25 22:35 Nasal Screen MRSA (PCR) - Final
Nose MRSA not detected - performed by PCR methodology.
04/26/25 23:07 Legionella Urinary Antigen - Final
Urine Negative for Legionella pneumophila Serogroup 1 antigen.
A negative result does not rule out the possiblity of
Legionella infection due to other serogroups or species of
Legionella. Clinical correlation is recommended.
Streptococcus pneumoniae Antigen (M - Final
Negative for Streptococcus pneumoniae antigen.
A negative result does not exclude infection with
Streptococcus pneumoniae. Clinical correlation is
recommended.
04/26/25 20:53 Blood Culture - Pending
Blood/Venous
04/26/25 20:45 Blood Culture - Pending
Blood/Venous
04/26/25 20:31 Blood Culture - Pending
Blood/Venous
04/26/25 20:26 Blood Culture - Pending
Blood/Venous
04/26/25 CTA chest: No evidence of aortic dissection. Several bilateral cavitary lesions throughout the lungs likely infectious in etiology. Repeat exam in a couple weeks following treatment is recommended to confirm improvement or resolution.
Findings suggesting moderate left lower lobe pneumonia. Tiny bilateral pleural effusions, left larger than right.
Assessment / Plan
# Cavitary pneumonia
# Leukocytosis
# Mental status change
# Right side facial droop
- Possible source from poor dentition
- For TTE
- Brain MRI
- Sputum cx if able to produce
- Follow blood cx's
- MRSA screen neg. DC Vancomycin
-Continue Zosyn
- Trend wbc.
Care Review
Plan reviewed with: Physician (Dr. Beckman)
--- NOTE | 2025-04-27 12:57 | W.PN.HOSP.TC ---
Today's Communication/Plan
-
See above
Assessment / Plan
Assessment / Plan
Impression:
Presentation with altered mental status and left-sided pleuritic chest pain.
Bilateral cavitary pneumonia.
Toxic metabolic encephalopathy.
Hyponatremia.
Acute kidney injury
Plan
Bilateral cavitary pneumonia.
CT scan of the chest negative for pulmonary embolism consistent with bilateral cavitary lesions and left lower lobe infiltrate with minimal bilateral pleural effusion.
Poor dentition
Speech and swallow evaluation
Echocardiogram to rule out embolic lesions.
Given altered mental status, aphasia, and left facial droop we will order additional brain imaging with MRI
Continue IV antibiotics following blood cultures
Other differentials including aspergillosis, nocardiosis noted. Low risk for TB.
Strep and Legionella antigens negative.
Pulmonary/ID evaluation
Toxic metabolic encephalopathy likely multifactorial in settings of acute infection, acute kidney injury and hyponatremia.
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
Patient with no prior history of cardiovascular disease including CVA.
CT scan of the head with no acute abnormalities.
Given the above including bilateral cavitary pneumonia and persistent encephalopathy will proceed with MRI of the brain.
JANAK
Hypovolemic hyponatremia.
Sodium level and creatinine improving with IV fluid bolus
Continue to monitor closely.
Full code.
DVT prophylaxis Lovenox
Anticipated Discharge: > 48 hours
Subjective/Interval History
-
Date of Service: April 27, 2025
Objective Data
-
Labs:
Laboratory Results
04/27/25
05:30
WBC 18.6 H
Hgb 12.5 L
Hct 36.2 L
Plt Count 184
Sodium 137
Potassium 3.9
Chloride 108 H
Carbon Dioxide 26
BUN 24 H
Creatinine 1.3
Glucose 109 H
Calcium 9.7
Vital Signs:
Vital Signs
Temp Pulse Resp BP Pulse Ox
98.3 F 90 18 140/85 98
04/27/25 07:10 04/27/25 07:10 04/27/25 07:10 04/27/25 07:10 04/27/25 07:10
I&O
04/26/25 04/27/25 04/28/25
06:59 06:59 06:59
Intake Total 480 / 480
Output Total 2019
Balance -1540 / -1540
Physical Exam
-
General: Well Developed and No Apparent Distress
HEENT: Normocephalic, Atraumatic and Moist Mucous Membranes
Respiratory: Clear to Auscultation
Cardiac: Regular Rhythm and S1/S2; Negative Murmur, Rub or Gallop
GI: Soft, Nontender, Nondistended and Normal Bowel Sounds; Negative Organomegaly
Rectal: Deferred by Provider
Musculoskeletal: No Clubbing, No Cyanosis and No Edema
Skin: Negative Rash
Neuro: Awake, Alert, Oriented (To name only) and Nonfocal/Grossly Intact
[2025-04-27] MEDS: SODIUM CHLORIDE 3% FOR INHALATION 1 VIAL INH (13:38)
--- NOTE | 2025-04-27 13:54 | PTOTSP ---
Dysphagia Evaluation
No signs of dysphagia or aspiration during clinical bedside swallowing evaluation. Acute dysphagia risk elevated given AMS. If concerned for silent aspiration consider video swallow study.
Patient with what appeared to be fluent aphasia during this evaluation as well as right upper facial asymmetry/drooping and asymmetrical pupils. Staff already aware.
Recommend:
1. IDDSI Level 7 Regular, Thin Liquids
2. Medications: as best tolerated
3. Supervision with PO intake
4. RADIOLOGIC TECH f/u for full speech/language evaluation pending results of MRI of Brain
--- NOTE | 2025-04-27 14:21 | PN.CDI ---
CDI
- -
CDI:
Physician Documentation Request
Admit Date: 04/26/25 21:42
Dear Doctor Karuna,
Patient admitted with pneumonia.
04/27 PN, 'Bilateral cavitary pneumonia....Continue IV antibiotics following blood cultures.'
On admission, WBC 22.6 and HR> 90.
Please clarify which of the following most accurately describes the status of the patient's infection:
Sepsis, POA
Bilateral cavitary pneumonia only
Other
Sepsis
- Systemic manifestations of infection, with 2 or more SIRS criteria which include:
- Fever >100.9 degrees F or hypothermia < 96.8 degrees F
- Leukocytosis - WBC > 12,000 or leukopenia - WBC < 4,000 or > 10% bands
- Tachycardia > 90 beats per minute
- Tachypnea - RR > 20 breaths per minute or PaCO2 , 32mmHg
Source: Merck Manual 2013
- Indicate the known or suspected organism
- Indicate the known or suspected underlying infection, such as pneumonia
Localized Infection Only, Without Systemic Illness
- indicate the site/source, such as pneumonia
Other
Use of terms such as suspected, likely, concern for, or probable (associated with a specific diagnosis that is being evaluated, monitored, or treated as if it exists) are acceptable and can be coded in the inpatient setting, when documented at the
time of discharge.
Thank you,
Francia LUXN,RN,CCDS
CDI Specialist
Available via tiger text
Please use your independent medical judgment in providing your response.
--- NOTE | 2025-04-27 14:58 | CON.PUL ---
Consultation
Consultation Request
Date/Time Consultation Requested: 04/27/2025
Date/Time Consultation Performed: 04/27/2025
Requesting Provider: Otis Beckman
Performing Provider: Nargis Yo
Reason for Consultation: Pneumonia
Medical History
-
Chief Complaint: Pleuritic discomfort
History of Present Illness:
Patient is an 84-year-old gentleman who is pleasantly confused during my evaluation hence history was mostly obtained from review of records as well as discussion with the primary hospitalist. Patient was brought to the hospital on 04/26 for
concern of pleuritic chest pain. Patient overall has been fairly healthy and lives by himself and independent. Workup included a chest x-ray followed by a CTA which was negative for pulmonary embolism but did show multiple cavitary areas
concerning for pneumonia as well as left lower lobe consolidation with trace pleural effusion. Patient was admitted to the hospital and started on broad-spectrum antibiotics, infectious disease service was also consulted. In view of cavitary
pneumonia, pulmonary consultation was requested for further input.
No reported history of alcoholism or heavy smoking. No reported history of recent syncope or passing out. He has had prior episodes of syncope and was evaluated by a physician about a year ago with negative workup as per records.
Past Medical History
Past Medical History: Reports None
Past Surgical History: Reports None
Social History
Tobacco: Non-smoker
Alcohol: None
Drug: None
Personal:
Living: Alone
Employment: Retired
Family History
Family History: Not pertinent
Allergies / Home Medications
Allergies
Allergy/AdvReac Type Severity Reaction Status Date / Time
No Known Allergies Allergy Verified 04/26/25 16:45
Home Medications
�Medication �Instructions �Recorded �Confirmed �Last Taken �Type
cholecalciferol (vitamin D3) 50 50 mcg PO DAILY 04/26/25 04/26/25 04/26/25 History
mcg (2,000 unit) capsule
Review of Systems
-
Unable to Obtain full review of systems at this time due to: Dementia
Vitals / Labs / Diagnostic Testing
Vital Signs
Temp Pulse Resp BP Pulse Ox
98.3 F 83 16 140/85 98
04/27/25 07:10 04/27/25 13:39 04/27/25 13:39 04/27/25 07:10 04/27/25 13:39
Lab Data
04/27/25 05:30
04/27/25 05:30
Microbiology
04/26/25 22:35 Nose Nasal Screen MRSA (PCR) - Final
MRSA not detected - performed by PCR methodology.
04/26/25 23:07 Urine Legionella Urinary Antigen - Final
Negative for Legionella pneumophila Serogroup 1 antigen.
A negative result does not rule out the possiblity of
Legionella infection due to other serogroups or species of
Legionella. Clinical correlation is recommended.
04/26/25 23:07 Urine Streptococcus pneumoniae Antigen (M - Final
Negative for Streptococcus pneumoniae antigen.
A negative result does not exclude infection with
Streptococcus pneumoniae. Clinical correlation is
recommended.
Diagnostic Testing:
Physical Exam
-
HEENT: Normocephalic
Cardiovascular: S1/S2
Respiratory: Clear
GI: Soft and Non Distended
Neurology: Awake and Alert
Skin: Warm
General: Comfortable
Assessment
-
#1. Multi focal cavitary lesions along with left lower lobe pneumonia and suspect parapneumonic effusion
- Infectious etiology seems to be most likely. Chronic aspiration in differential diagnosis.
- Blood cultures pending. Legionella and pneumococcal antigen negative. MRSA screen negative.
- Patient unable to produce sputum. Sputum induction was attempted with hypertonic saline but patient was not able to produce specimen for sputum cultures as well as AFB screening. Considering the anatomy distribution of lesions as well as
consolidative left lower lobe, pretest probability of AFB related disease is low
- Continue Zosyn, follow-up on cultures. WBC count improving went down to 18.6 from 22.6 on admission. ESR and CRP are elevated.
- Infectious disease service on case
- Vasculitis can also present as cavitary lesion however clinically less likely presentation at age 84, no reported hemoptysis. Improving renal function with hydration.
- Favor follow-up imaging in 72 to 96 hours of IV antibiotic, if any worsening noted may consider bronchoscopy and BAL for further sampling.
- O2 support as needed to maintain oxygen saturation
- Recommend speech and swallow evaluation
#2. Pleurisy
- Pleuritic, left-sided, pain related to left lower consolidation along with trace pleural effusion likely parapneumonic
- Continue IV antibiotics for now, follow-up CT on 04/30, if effusion grows we will need drainage. On admission CT scan, effusion is too small for safe drainage.
- Pain control
Other medical diagnoses:
- Cognitive impairment versus developing dementia
- Hyponatremia
- JANAK with underlying chronic kidney disease on admission
Total time spent on this consultation/encounter _75___ minutes which includes review of history, physical exam, medications, laboratory data, personal review of imaging, extensive review of outpatient records, discussion with care team and
respiratory therapy.
Data:
CT Chest 04/2025: No evidence of aortic dissection.
Several bilateral cavitary lesions throughout the lungs likely infectious in etiology. Repeat exam in a couple weeks following treatment is recommended to confirm improvement or resolution.
Findings suggesting moderate left lower lobe pneumonia.
Tiny bilateral pleural effusions, left larger than right.
Mild right lower lobe and lingular atelectasis versus scarring
Stress ECHO 10/2021: Normal Stress Echocardiogram with normal hemodynamic response to exercise.
A treadmill Exercise Stress Echocardiogram was completed. Blood pressure, heart
rate and ECG tracings were obtained with each Javan protocol stage completed.
Pre-exercise two-dimensional transthoracic echocardiogram evaluation and post-
exercise two-dimensional transthoracic echocardiogram evaluation images were
obtained.
[2025-04-27 15:05] VITALS: BP 140/93
--- NOTE | 2025-04-27 15:19 | VNURNOTE ---
Home Health Liaison met with patient and spouse at bedside to discuss [facility] nurse/therapy, visits, schedule and homebound status. They are agreeable and understand that visits at home will be 2-3 x per week to assess and teach medical management.
Patient is aware that [facility] will contact them for start of care in 1-2 days after discharge from .
[facility] referral completed in [facility].
--- NOTE | 2025-04-27 15:20 | VNURNOTE ---
Home Health Liaison met with patient and son at bedside to discuss [facility] nurse/therapy, visits, schedule and homebound status. They are agreeable and understand that visits at home will be 2-3 x per week to assess and teach medical management.
Patient is aware that [facility] will contact them for start of care in 1-2 days after discharge from .
[facility] referral completed in [facility].
[2025-04-27] MEDS: LOVENOX 40 MG SC (17:17)
[2025-04-27 23:42] VITALS: BP 164/99
[2025-04-27] MEDS: MELATONIN 3 MG PO (23:43)
[2025-04-28] MEDS: HALDOL 1 MG IM (00:32)
[2025-04-28] MEDS: NSS 1000 IV ×2 (05:00→14:47)
[2025-04-28] MEDS: ZOSYN 50 IV ×2 (05:58→11:51)
--- NOTE | 2025-04-28 06:20 | PTCARENOTE ---
04/27 Around 23:30 pt became very restless and kept pulling at TELE lines and IV; kept trying to get OOB/ out of chair to leave the room. Pt was unable to calm down via non-pharmacological therapy. [employer]ORER interventional physician notified and ordered Haldol 1mg IM;
administer by this RN. Pt was still restless and becoming combative, L[employer]WORK [employer]ORER ordered and this RN applied soft b/l wrist restraints and all 4 bed rails up. Pt is now calm and resting in bed with the b/l wrist restraints and all bed rails up with call maier
within reach.
[2025-04-28 07:00] VITALS: BP 140/88
[2025-04-28 07:21] LABS: % Basophils 0.6 % (0-2); % Eosinophils 0.5 % (0-6); % Immature Granulocytes 1.1 % (0-0.5); % Lymphocytes 5.8 % (20.5-51.1); % Monocytes 5.4 % (1.7-9.3); % Neutrophils 86.6 % (42.2-75.2); Absolute Basophils 0.1 10^3/uL (0-0.2); Absolute Eosinophils 0.1 10^3/uL (0-0.7); Absolute Immature Granulocytes 0.1 10^3/uL (0-0.05); Absolute Lymphocytes 0.6 10^3/uL (1.2-3.4); Absolute Monocytes 0.6 10^3/uL (0.1-0.6); Absolute Neutrophils 9.5 10^3/uL (1.4-6.5); Hematocrit 35.3 % (39.0-52.0); Hemoglobin 12.5 g/dL (13.0-18.0); Mean Corp Hgb Conc. 35.4 g/dL (33.0-37.0); Mean Corpuscular Hgb 31.5 pg (27.0-31.0); Mean Corpuscular Volume 88.9 fL (80.0-94.0); Nucleated Red Blood Cells % 0 % (-); Platelet Count 199 10^3/uL (130-400); Red Blood Cell Count 3.97 10^6/uL (4.70-6.10)
[2025-04-28 07:33] LABS: Blood Urea Nitrogen 19 mg/dl (9-20); Calcium 9.6 mg/dl (8.4-10.2); Carbon Dioxide 23 mmol/L (22-30); Chloride 111 mmol/L (98-107); Estimated Creatinine Clearance 50 ml/min; Glucose 124 mg/dl (70-99); Potassium 3.5 mmol/L (3.5-5.1); Sodium 140 mmol/L (135-145); eGFR 59.63
--- NOTE | 2025-04-28 07:35 | W.PN.HOSP.TC ---
Today's Communication/Plan
-
Antibiotics changed from Zosyn to Unasyn
MRI with no concerning findings/acute changes
Assessment / Plan
Assessment / Plan
Physical Exam
General: Well Developed and No Apparent Distress
HEENT: Normocephalic, Atraumatic and Moist Mucous Membranes
Respiratory: Clear to Auscultation
Cardiac: Regular Rhythm and S1/S2
GI: Soft, Nontender, Nondistended and Normal Bowel Sounds
Musculoskeletal: No Cyanosis and No Edema
Skin: Warm. Dry.
Neuro: Awake, Alert, Oriented (to person, place and date -- previously was to name only) and Nonfocal/Grossly Intact
Psych: Has some insight as of 04/28/25 -- able to say he is in the hospital because he is sick
Impression:
Presentation with altered mental status and left-sided pleuritic chest pain.
Bilateral cavitary pneumonia.
Toxic metabolic encephalopathy.
Hyponatremia.
Acute kidney injury
Plan
Bilateral cavitary pneumonia.
CT scan of the chest negative for pulmonary embolism consistent with bilateral cavitary lesions and left lower lobe infiltrate with minimal bilateral pleural effusion.
Poor dentition (possible source of the cavitary pneumonia)
Speech and swallow evaluation
Echocardiogram to rule out embolic lesions -- no vegetations.
Given altered mental status, aphasia, and left facial droop we will order additional brain imaging with MRI
Continue IV antibiotics following blood cultures -- Zosyn narrowed to Unasyn
Other differentials including aspergillosis, nocardiosis noted. Low risk for TB.
Strep and Legionella antigens negative.
Pulmonary/ID evaluation
Toxic metabolic encephalopathy likely multifactorial in settings of acute infection, acute kidney injury and hyponatremia.
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
Patient with no prior history of cardiovascular disease including CVA.
CT scan of the head with no acute abnormalities.
Given the above including bilateral cavitary pneumonia and persistent encephalopathy, MRI of the brain ordered and showed no acute changes.
JANAK
Hypovolemic hyponatremia.
Sodium level and creatinine improving with IV fluids
Continue to monitor closely.
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
Follow-up outpatient
Full code.
DVT prophylaxis Lovenox
Anticipated Discharge: > 48 hours
Subjective/Interval History
-
Date of Service: April 28, 2025
Patient was seen and examined. Overnight he was agitated and received Haldol. This morning he was comfortable and denied any new symptoms or complaints.
Objective Data
-
Labs:
Laboratory Results
04/28/25
06:50
WBC 11.0 H
Hgb 12.5 L
Hct 35.3 L
Plt Count 199
Sodium 140
Potassium 3.5
Chloride 111 H
Carbon Dioxide 23
BUN 19
Creatinine 1.2
Glucose 124 H
Calcium 9.6
Vital Signs:
Vital Signs
Temp Pulse Resp BP Pulse Ox
98.6 F 88 20 164/99 98
04/27/25 23:42 04/27/25 23:42 04/27/25 23:42 04/27/25 23:42 04/27/25 23:42
I&O
04/27/25 04/28/25 04/29/25
06:59 06:59 06:59
Intake Total 480 / 480 1140 / 1140
Output Total 2019 1600 / 1600
Balance -1540 / -1540 -460 / -460
[2025-04-28] MEDS: VITAMIN D3 (cholecalciferol) 50 MCG PO (09:23)
--- NOTE | 2025-04-28 10:07 | PTOTSP ---
Speech therapy
Swallowing Function: Patient was observed with several bites of cracker and sips (straw) of thin liquid in which patient appeared to tolerate as he did not exhibit any overt clinical s/sx of aspiration. Patient denied any dysphagia complaints. Of
note, patient required full assistance due to patient being in restraints.
Recommendations:
1) Continuation of regular consistency solids and thin liquids
2) Standard aspiration precautions
3) Speech/ lang/ cog evaluation given noted possible aphasia
4) Medications as tolerated
Plan: FOOT ROENTGENOLOGIST will continue to follow to ensure tolerance and to quantify speech/ lang/ cog functioning; pending hospitalization.
--- NOTE | 2025-04-28 10:19 | PTOTSP ---
Speech therapy
Presentation: During conversation with BLINDSTITCH LINING FELLER, patient demonstrated possible expressive aphasia (word finding difficulty), perseverations, circumlocutions, and asked for BLINDSTITCH LINING FELLER to repeat questions to ensure he 'understood'. Given the presentation, BLINDSTITCH LINING FELLER
used the MOCA-basic to evaluate patient's overall speech, language, and cognitive functioning.
MOCA-Basic Scores:
Executive functioning: skipped as patient was unable to do the task due to restraints
Immediate Recall: 0/0
Fluency: 0/2
Orientation: 4/6
Calculation: 0/3
Abstraction: 1/3
Delayed Recall: 0/5
Visuoperception: 2/3
Namin4
Attention: 13
Interpretation: Given the above scores, patient appeared to demonstrate difficulty with fluency, calculation, abstraction,delayed recall, and attention. Patient demonstrated difficulty with problem solving, following directions the first attempt,
circumlocutions, repetitions, and word finding difficulty. Patient often asked the BLINDSTITCH LINING FELLER to ask the question several times before completing the task. Patient stated that he felt like the test went well. Given the above, recommend consideration of
further speech/lang/cognitive therapy to ensure safety when d/c.
Recommendations:
1) Continuation of regular consistency solids and thin liquids
2) Standard aspiration precautions
3) Speech/ lang/ cog therapy
4) Medications as tolerated
Plan: BLINDSTITCH LINING FELLER will continue to follow to ensure tolerance of PO and for speech/ lang/ cognitive treatment; pending hospitalization.
--- NOTE | 2025-04-28 13:00 | PTCARENOTE ---
Patient oob in chair assist x2, calm and cooperative at this time. No restraints needed at this time. No s/s of distress noted. Chair alarm in place. call maier within reach.
--- NOTE | 2025-04-28 13:25 | W.PN.PUL3 ---
Today's Communication / Plan
-
- Follow-up CT chest on 04/30
Assessment
-
Patient is an 84-year-old gentleman who is pleasantly confused during my evaluation hence history was mostly obtained from review of records as well as discussion with the primary hospitalist. Patient was brought to the hospital on 04/26 for
concern of pleuritic chest pain. Patient overall has been fairly healthy and lives by himself and independent. Workup included a chest x-ray followed by a CTA which was negative for pulmonary embolism but did show multiple cavitary areas
concerning for pneumonia as well as left lower lobe consolidation with trace pleural effusion. Patient was admitted to the hospital and started on broad-spectrum antibiotics, infectious disease service was also consulted. In view of cavitary
pneumonia, pulmonary consultation was requested for further input.
No reported history of alcoholism or heavy smoking. No reported history of recent syncope or passing out. He has had prior episodes of syncope and was evaluated by a physician about a year ago with negative workup as per records.
#1. Multi focal cavitary lesions along with left lower lobe pneumonia and suspect parapneumonic effusion
- Infectious etiology seems to be most likely. Chronic aspiration in differential diagnosis.
- Blood cultures pending. Legionella and pneumococcal antigen negative. MRSA screen negative.
- Patient unable to produce sputum. Sputum induction was attempted with hypertonic saline but patient was not able to produce specimen for sputum cultures as well as AFB screening. Considering the anatomy distribution of lesions as well as
consolidative left lower lobe, pretest probability of AFB related disease is low
- Continue Zosyn, follow-up on cultures. WBC count continues to improve.
- Infectious disease service on case
- Vasculitis can also present as cavitary lesion however clinically less likely presentation at age 84, no reported hemoptysis. Improving renal function with hydration.
- Favor follow-up imaging in 72 to 96 hours of IV antibiotic, if any worsening noted may consider bronchoscopy and BAL for further sampling.
- O2 support as needed to maintain oxygen saturation
- Recommend speech and swallow evaluation
#2. Pleurisy
- Pleuritic, left-sided, pain related to left lower consolidation along with trace pleural effusion likely parapneumonic
- Continue IV antibiotics for now, follow-up CT on 04/30, if effusion grows we will need drainage. On admission CT scan, effusion is too small for safe drainage.
- Pain control
Other medical diagnoses:
- Cognitive impairment versus developing dementia
- Hyponatremia
- JANAK with underlying chronic kidney disease on admission
Total time spent on this consultation/encounter _45___ minutes which includes review of history, physical exam, medications, laboratory data, personal review of imaging, extensive review of outpatient records, discussion with care team and
respiratory therapy.
Data:
CT Chest 04/2025: No evidence of aortic dissection.
Several bilateral cavitary lesions throughout the lungs likely infectious in etiology. Repeat exam in a couple weeks following treatment is recommended to confirm improvement or resolution.
Findings suggesting moderate left lower lobe pneumonia.
Tiny bilateral pleural effusions, left larger than right.
Mild right lower lobe and lingular atelectasis versus scarring
Stress ECHO 10/2021: Normal Stress Echocardiogram with normal hemodynamic response to exercise.
A treadmill Exercise Stress Echocardiogram was completed. Blood pressure, heart
rate and ECG tracings were obtained with each Javan protocol stage completed.
Pre-exercise two-dimensional transthoracic echocardiogram evaluation and post-
exercise two-dimensional transthoracic echocardiogram evaluation images were
obtained.
Subjective Data
-
Date of Service:
Date of Service: April 28, 2025
Subjective:
Patient comfortably lying in bed, on room air, not in any respiratory distress.
Review of Systems
General: Other (Limited by underlying cognitive deficit)
Genitourinary: Other (Does not appear to be in any distress.)
Objective Data
Data Reviewed
Vital Signs / I&O / Oxygen:
Vital Signs
Temp Pulse Resp BP Pulse Ox
97.9 F 78 18 140/88 97
04/28/25 07:00 04/28/25 07:00 04/28/25 07:00 04/28/25 07:00 04/28/25 07:00
Intake and Output
04/27/25 04/28/25 04/29/25
06:59 06:59 06:59
Intake Total 480 / 480 1140 / 1140
Output Total 2019 1600 / 1600
Balance -1540 / -1540 -460 / -460
SaO2 97
Physical Exam
General: Comfortable
HEENT: Normocephalic
Cardiovascular: S1-S2
Respiratory: Clear
GI: Soft and Non Distended
Labs/Micro/Reports
Lab Data
04/28/25 06:50
04/28/25 06:50
Microbiology
04/26/25 20:45 Blood/Venous Blood Culture - Preliminary
No Growth in 24 hours- Final report to follow
04/26/25 20:53 Blood/Venous Blood Culture - Preliminary
No Growth in 24 hours- Final report to follow
04/26/25 20:31 Blood/Venous Blood Culture - Preliminary
No Growth in 24 hours- Final report to follow
04/26/25 20:26 Blood/Venous Blood Culture - Preliminary
No Growth in 24 hours- Final report to follow
04/26/25 22:35 Nose Nasal Screen MRSA (PCR) - Final
MRSA not detected - performed by PCR methodology.
04/26/25 23:07 Urine Legionella Urinary Antigen - Final
Negative for Legionella pneumophila Serogroup 1 antigen.
A negative result does not rule out the possiblity of
Legionella infection due to other serogroups or species of
Legionella. Clinical correlation is recommended.
04/26/25 23:07 Urine Streptococcus pneumoniae Antigen (M - Final
Negative for Streptococcus pneumoniae antigen.
A negative result does not exclude infection with
Streptococcus pneumoniae. Clinical correlation is
recommended.
--- NOTE | 2025-04-28 14:00 | W.PN.ID1 ---
Date of Service
Date of Service: April 28, 2025
Today's Communication
-deescalate Zosyn to Unasyn 3g IV q6.
Assessment / Plan
# Cavitary pneumonia
# Leukocytosis - improving
# Mental status change
# Right side facial droop - chronic. MRI no acute pathology.
- Possible source of cavitary PNA from poor dentition
- TTE: no vege
- Sputum cx if able to produce
- blood cx's x 4 neg to date
-deescalate Zosyn to Unasyn 3g IV q6.
- Trend wbc.
Chief Complaint
-: Pneumonia
Subjective / Review of Systems
Son at bedside. He reports patient is still confused.
Pt states pleuritic pain better.
Vital Signs / Physical Exam
Vital Signs
Vital Signs
Temp Pulse Resp BP Pulse Ox
97.9 F 78 18 140/88 97
04/28/25 07:00 04/28/25 07:00 04/28/25 07:00 04/28/25 07:00 04/28/25 07:00
Physical Exam
Constitutional: No Acute Distress and Comfortable
Eyes: Sclera Anicteric
Pulmonary: Rales (Left base crackles)
Gastrointestinal: Soft, Non Tender, Non Distended and Normal Bowel Sounds
Extremities: Negative Edema
Neurological: Awake and Alert
Objective Data
Lab Data
Lab Results
04/28/25 06:50
04/28/25 06:50
ESR 20 mm/hour (0-20) 04/27/25 05:30
Estimated Creat Clear 50 ml/min 04/28/25 06:50
Total Bilirubin 1.5 mg/dl (0.2-1.3) H 04/26/25 16:59
AST 29 U/L (17-59) 04/26/25 16:59
ALT 21 U/L (0-50) 04/26/25 16:59
Alkaline Phosphatase 60 U/L (38-126) 04/26/25 16:59
C-Reactive Protein 227.50 mg/L (0.0-10.00) H 04/27/25 05:30
Most recent labs reviewed.
Micro Results:
04/26/25 20:45 Blood Culture - Preliminary
Blood/Venous No Growth in 24 hours- Final report to follow
04/26/25 20:53 Blood Culture - Preliminary
Blood/Venous No Growth in 24 hours- Final report to follow
04/26/25 20:31 Blood Culture - Preliminary
Blood/Venous No Growth in 24 hours- Final report to follow
04/26/25 20:26 Blood Culture - Preliminary
Blood/Venous No Growth in 24 hours- Final report to follow
04/26/25 22:35 Nasal Screen MRSA (PCR) - Final
Nose MRSA not detected - performed by PCR methodology.
04/26/25 23:07 Legionella Urinary Antigen - Final
Urine Negative for Legionella pneumophila Serogroup 1 antigen.
A negative result does not rule out the possiblity of
Legionella infection due to other serogroups or species of
Legionella. Clinical correlation is recommended.
Streptococcus pneumoniae Antigen (M - Final
Negative for Streptococcus pneumoniae antigen.
A negative result does not exclude infection with
Streptococcus pneumoniae. Clinical correlation is
recommended.
04/26/25 CTA chest: No evidence of aortic dissection. Several bilateral cavitary lesions throughout the lungs likely infectious in etiology. Repeat exam in a couple weeks following treatment is recommended to confirm improvement or resolution.
Findings suggesting moderate left lower lobe pneumonia. Tiny bilateral pleural effusions, left larger than right.
[2025-04-28 15:00] VITALS: BP 155/96
[2025-04-28 16:13] VITALS: BP 141/96; BP 155/95; BP 155/96; PULSE 100; PULSE 80; PULSE 84
[2025-04-28] MEDS: LOVENOX 40 MG SC (17:02)
[2025-04-28] MEDS: UNASYN IV ×2 (17:03→23:20)
[2025-04-28] MEDS: MELATONIN 5 MG PO (20:19)
[2025-04-29] VITALS (7 sets, daily range): BP systolic 115–187; BP diastolic 69–124; PULSE 87–96
[2025-04-29] MEDS: NSS 1000 IV ×2 (02:30→11:49)
[2025-04-29] MEDS: UNASYN IV ×4 (05:10→18:10)
--- NOTE | 2025-04-29 07:48 | W.PN.HOSP.TC ---
Today's Communication/Plan
-
Repeat CT Chest to follow-up cavitary pneumonia
Continue Unasyn
Seroquel as needed and at night, wean off restraints as able
Assessment / Plan
Assessment / Plan
Physical Exam
General: Well Developed and No Apparent Distress
HEENT: Normocephalic, Atraumatic and Moist Mucous Membranes
Respiratory: Clear to Auscultation
Cardiac: Regular Rhythm and S1/S2
GI: Soft, Nontender, Nondistended and Normal Bowel Sounds
Musculoskeletal: No Cyanosis and No Edema
Skin: Warm. Dry.
Neuro: Awake, Alert, Oriented (to person, place and date -- previously was to name only) and Nonfocal/Grossly Intact
Psych: Has some insight as of 04/28/25 -- able to say he is in the hospital because he is sick
Impression:
Presentation with altered mental status and left-sided pleuritic chest pain.
Bilateral cavitary pneumonia.
Toxic metabolic encephalopathy.
Hyponatremia.
Acute kidney injury
Agitation
Plan
Bilateral cavitary pneumonia.
CT scan of the chest negative for pulmonary embolism consistent with bilateral cavitary lesions and left lower lobe infiltrate with minimal bilateral pleural effusion.
Poor dentition (possible source of the cavitary pneumonia)
Speech and swallow evaluation
Echocardiogram done to rule out embolic lesions -- no vegetations.
Given altered mental status, aphasia, and left facial droop brain imaging with MRI was done with unremarkable findings
Continue IV antibiotics following blood cultures (no growth to date) -- Zosyn recently narrowed to Unasyn -- continue Unasyn
Other differentials including aspergillosis, nocardiosis noted. Low risk for TB.
Strep and Legionella antigens negative.
Pulmonary/ID evaluation
Repeat CT Chest for tomorrow, discussed with pulmonary on 04/29/25
Toxic metabolic encephalopathy likely multifactorial in settings of acute infection, acute kidney injury and hyponatremia.
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
Patient with no prior history of cardiovascular disease including CVA.
CT scan of the head with no acute abnormalities.
Given the above including bilateral cavitary pneumonia and persistent encephalopathy, MRI of the brain ordered and showed no acute changes.
JANAK
Hypovolemic hyponatremia.
Sodium level and creatinine improving with IV fluids
Continue to monitor closely.
Agitation
Restraints placed
QTc okay -- started Seroquel in effort to wean off restraints
Fall precautions
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
Follow-up outpatient
Full code.
DVT prophylaxis Lovenox
Anticipated Discharge: > 48 hours
Subjective/Interval History
-
Date of Service: April 29, 2025
Patient was seen and examined. Overnight, per nurse, he was agitated needing continued restraint orders. Patient however denied any complaints this morning.
Objective Data
-
Labs:
Laboratory Results
04/29/25
07:35
WBC Pending
Hgb Pending
Hct Pending
Plt Count Pending
Sodium Pending
Potassium Pending
Chloride Pending
Carbon Dioxide Pending
BUN Pending
Creatinine Pending
Glucose Pending
Calcium Pending
Vital Signs:
Vital Signs
Temp Pulse Resp BP Pulse Ox
98.5 F 98 17 164/83 98
04/28/25 23:50 04/28/25 23:50 04/28/25 23:50 04/29/25 00:10 04/28/25 23:50
I&O
04/28/25 04/29/25 04/30/25
06:59 06:59 06:59
Intake Total 1140 / 1140 1380 / 1380
Output Total 1600 / 1600 490 / 490
Balance -460 / -460 890 / 890
[2025-04-29 08:08] LABS: % Basophils 0.9 % (0-2); % Eosinophils 1.3 % (0-6); % Immature Granulocytes 0.9 % (0-0.5); % Lymphocytes 9.3 % (20.5-51.1); % Monocytes 8.5 % (1.7-9.3); % Neutrophils 79.1 % (42.2-75.2); Absolute Basophils 0.1 10^3/uL (0-0.2); Absolute Eosinophils 0.1 10^3/uL (0-0.7); Absolute Immature Granulocytes 0.1 10^3/uL (0-0.05); Absolute Lymphocytes 0.8 10^3/uL (1.2-3.4); Absolute Monocytes 0.7 10^3/uL (0.1-0.6); Absolute Neutrophils 6.7 10^3/uL (1.4-6.5); Hematocrit 36.1 % (39.0-52.0); Hemoglobin 12.7 g/dL (13.0-18.0); Mean Corp Hgb Conc. 35.2 g/dL (33.0-37.0); Mean Corpuscular Hgb 31.9 pg (27.0-31.0); Mean Corpuscular Volume 90.7 fL (80.0-94.0); Mean Platelet Volume 10.4 fL (7.4-10.4); Nucleated Red Blood Cells % 0 % (-); Platelet Count 198 10^3/uL (130-400); Red Blood Cell Count 3.98 10^6/uL (4.70-6.10); Red Cell Dist. Width 12.2 % (11.5-14.5); White Blood Cell Count 8.5 10^3/uL (4.8-10.8)
--- NOTE | 2025-04-29 08:33 | PTCARENOTE ---
Patient noted with elevated bp this am. Vs documented. Pt denies chest pain, or sob. no s/s of distress noted at this time. Dr made aware. No new orders at this time. Plan of care ongoing.
[2025-04-29] MEDS: VITAMIN D3 (cholecalciferol) 50 MCG PO (09:10)
[2025-04-29 10:05] LABS: Blood Urea Nitrogen 9 mg/dl (9-20); Carbon Dioxide 23 mmol/L (22-30); Chloride 112 mmol/L (98-107); Estimated Creatinine Clearance 60 ml/min; Glucose 95 mg/dl (70-99); Potassium 3.8 mmol/L (3.5-5.1); Sodium 142 mmol/L (135-145); eGFR > 60.00
--- NOTE | 2025-04-29 11:35 | W.PN.ID1 ---
Date of Service
Date of Service: April 29, 2025
Today's Communication
Continue Unasyn.
Assessment / Plan
# Cavitary pneumonia
# Leukocytosis - resolved
# Mental status change
- Possible source of cavitary PNA from poor dentition
- TTE: no vege
- Sputum cx - unable to produce
- blood cx's x 4 neg to date
-Continue Unasyn 3g IV q6.
Chief Complaint
-: Pneumonia
Vital Signs / Physical Exam
Vital Signs
Vital Signs
Temp Pulse Resp BP Pulse Ox
98.5 F 94 20 168/90 96
04/29/25 07:00 04/29/25 07:05 04/29/25 07:00 04/29/25 08:07 04/29/25 07:00
Physical Exam
Constitutional: No Acute Distress and Comfortable
Cardiovascular: Regular Rate and S1/S2
Pulmonary: Rales (Left base crackles)
Gastrointestinal: Soft, Non Tender, Non Distended and Normal Bowel Sounds
Extremities: Negative Edema
Neurological: Awake and Alert
Objective Data
Lab Data
Lab Results
04/29/25 07:35
04/29/25 09:08
ESR 20 mm/hour (0-20) 04/27/25 05:30
Estimated Creat Clear 60 ml/min 04/29/25 09:08
Total Bilirubin 1.5 mg/dl (0.2-1.3) H 04/26/25 16:59
AST 29 U/L (17-59) 04/26/25 16:59
ALT 21 U/L (0-50) 04/26/25 16:59
Alkaline Phosphatase 60 U/L (38-126) 04/26/25 16:59
C-Reactive Protein 227.50 mg/L (0.0-10.00) H 04/27/25 05:30
Most recent labs reviewed.
Micro Results:
04/26/25 20:45 Blood Culture - Preliminary
Blood/Venous No Growth in 48 hours- Final report to follow
04/26/25 20:53 Blood Culture - Preliminary
Blood/Venous No Growth in 48 hours- Final report to follow
04/26/25 20:26 Blood Culture - Preliminary
Blood/Venous No Growth in 48 hours- Final report to follow
04/26/25 20:31 Blood Culture - Preliminary
Blood/Venous No Growth in 48 hours- Final report to follow
04/26/25 22:35 Nasal Screen MRSA (PCR) - Final
Nose MRSA not detected - performed by PCR methodology.
04/26/25 23:07 Legionella Urinary Antigen - Final
Urine Negative for Legionella pneumophila Serogroup 1 antigen.
A negative result does not rule out the possiblity of
Legionella infection due to other serogroups or species of
Legionella. Clinical correlation is recommended.
Streptococcus pneumoniae Antigen (M - Final
Negative for Streptococcus pneumoniae antigen.
A negative result does not exclude infection with
Streptococcus pneumoniae. Clinical correlation is
recommended.
04/26/25 CTA chest: No evidence of aortic dissection. Several bilateral cavitary lesions throughout the lungs likely infectious in etiology. Repeat exam in a couple weeks following treatment is recommended to confirm improvement or resolution.
Findings suggesting moderate left lower lobe pneumonia. Tiny bilateral pleural effusions, left larger than right.
--- NOTE | 2025-04-29 12:15 | PTCARENOTE ---
Patient off restraints.Pt in bed and noted to be calm and cooperative with staff at this time. Family at bedside. no c/o at this time.Plan of care ongoing. call maier within reach.
[2025-04-29] MEDS: SEROQUEL 25 MG PO ×2 (17:17→21:25)
[2025-04-29] MEDS: LOVENOX SC ×2 (17:51→18:09)
--- NOTE | 2025-04-29 18:45 | PTCARENOTE ---
Patient noted to be agitated and uncooperative with staff. Continues to attempt to get out of bed unsafe despite redirection and fall risk precautions. Pt Pulled out his condom cath. PRN Seroquel administered as ordered with no effect. Pt became
increasingly aggressive toward staff, place pt in jorden chair for safety. No s/s of distress noted. Cross covering provider notified on his status. Ativan ordered and administered as ordered.Restraints order in place. safety precautions maintained at
all times. plan of care ongoing. call maier within reach.
[2025-04-29] MEDS: ATIVAN 0.25 MG IV (18:47)
[2025-04-29] MEDS: NSS (PRESERVATIVE FREE) 0.125 ML IV (18:47)
[2025-04-29] MEDS: TYLENOL 650 MG PO (21:26)
[2025-04-30] MEDS: UNASYN IV ×5 (00:25→23:24)
[2025-04-30 07:10] VITALS: BP 178/107
[2025-04-30 07:15] LABS: % Basophils 0.9 % (0-2); % Immature Granulocytes 1.6 % (0-0.5); % Lymphocytes 8.1 % (20.5-51.1); % Monocytes 8.1 % (1.7-9.3); % Neutrophils 78.3 % (42.2-75.2); Absolute Basophils 0.1 10^3/uL (0-0.2); Absolute Eosinophils 0.3 10^3/uL (0-0.7); Absolute Immature Granulocytes 0.1 10^3/uL (0-0.05); Absolute Lymphocytes 0.7 10^3/uL (1.2-3.4); Absolute Monocytes 0.7 10^3/uL (0.1-0.6); Hematocrit 34.5 % (39.0-52.0); Hemoglobin 11.9 g/dL (13.0-18.0); Mean Corp Hgb Conc. 34.5 g/dL (33.0-37.0); Mean Corpuscular Hgb 31.2 pg (27.0-31.0); Mean Corpuscular Volume 90.6 fL (80.0-94.0); Mean Platelet Volume 9.9 fL (7.4-10.4); Nucleated Red Blood Cells % 0 % (-); Platelet Count 239 10^3/uL (130-400); Red Blood Cell Count 3.81 10^6/uL (4.70-6.10); Red Cell Dist. Width 12.3 % (11.5-14.5); White Blood Cell Count 8.9 10^3/uL (4.8-10.8)
[2025-04-30 07:43] LABS: Blood Urea Nitrogen 9 mg/dl (9-20); Carbon Dioxide 23 mmol/L (22-30); Chloride 111 mmol/L (98-107); Estimated Creatinine Clearance 60 ml/min; Glucose 87 mg/dl (70-99); Potassium 3.4 mmol/L (3.5-5.1); Sodium 141 mmol/L (135-145); eGFR > 60.00
[2025-04-30] MEDS: VITAMIN D3 (cholecalciferol) 50 MCG PO (08:54)
[2025-04-30] MEDS: APRESOLINE 5 MG IV (08:55)
[2025-04-30 11:00] VITALS: BP 104/65; BP 89/55; BP 97/60; PULSE 112; PULSE 76; PULSE 92
--- NOTE | 2025-04-30 11:11 | W.PN.HOSP.TC ---
Today's Communication/Plan
-
Stable respiratory status with improvement of the left side pleuritic chest pain
Follow-up CT scan noted
Continue antibiotics, consider to transition to Augmentin
Disposition planning, given decline in cognitive status would benefit from nursing facility placement.
Assessment / Plan
Assessment / Plan
Impression:
Presentation with altered mental status and left-sided pleuritic chest pain.
Bilateral cavitary pneumonia.
Toxic metabolic encephalopathy.
Hyponatremia.
Acute kidney injury
Agitation
Plan
Bilateral cavitary pneumonia.
No evidence for systemic infection or sepsis
CT scan of the chest negative for pulmonary embolism consistent with bilateral cavitary lesions and left lower lobe infiltrate with minimal bilateral pleural effusion.
Poor dentition (possible source of the cavitary pneumonia)
Speech and swallow evaluation with no overt aspiration
Echocardiogram done to rule out embolic lesions -- no vegetations.
Given altered mental status, aphasia, and left facial droop brain imaging with MRI was done with unremarkable findings
Continue IV antibiotics following blood cultures (no growth to date) -- Zosyn recently narrowed to Unasyn -- continue Unasyn
Other differentials including aspergillosis, nocardiosis noted. Low risk for TB.
Strep and Legionella antigens negative.
Pulmonary/ID evaluation
Follow-up CT scan of the chest with bilateral cavitary lesions, persistent left lower consolidation pleural effusion likely parapneumonic.
Toxic metabolic encephalopathy likely multifactorial in settings of acute infection, acute kidney injury and hyponatremia.
Agitation likely related to hospital-acquired delirium
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
Patient with no prior history of cardiovascular disease including CVA.
CT scan of the head with no acute abnormalities.
MRI of the brain with no acute abnormalities
Initiated on Seroquel 25 mg p.o. at bedtime/25 mg daily as needed for agitation. Overall improved. Monitor QTc interval while on Seroquel.
JANAK
Hypovolemic hyponatremia.
Sodium level and creatinine improving with IV fluids
Continue to monitor closely.
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
Follow-up outpatient
Full code.
DVT prophylaxis Lovenox
Anticipated Discharge: 24 - 48 hours
Subjective/Interval History
-
Date of Service: April 30, 2025
Objective Data
-
Labs:
Laboratory Results
04/30/25
06:44
WBC 8.9
Hgb 11.9 L
Hct 34.5 L
Plt Count 239 D
Sodium 141
Potassium 3.4 L
Chloride 111 H
Carbon Dioxide 23
BUN 9
Creatinine 1.0
Glucose 87
Calcium 9.0
Vital Signs:
Vital Signs
Temp Pulse Resp BP Pulse Ox
98.1 F 97 18 178/107 97
04/30/25 07:10 04/30/25 07:10 04/30/25 07:10 04/30/25 07:10 04/30/25 07:10
I&O
04/29/25 04/30/25 05/01/25
06:59 06:59 06:59
Intake Total 1380 / 1380 600 / 600
Output Total 490 / 490 2300 / 2300
Balance 890 / 890 -1700 / -1700
Physical Exam
-
General: Well Developed and No Apparent Distress
HEENT: Normocephalic, Atraumatic and Moist Mucous Membranes
Respiratory: Clear to Auscultation
Cardiac: Regular Rhythm and S1/S2; Negative Murmur, Rub or Gallop
GI: Soft, Nontender, Nondistended and Normal Bowel Sounds; Negative Organomegaly
Rectal: Deferred by Provider
Musculoskeletal: No Clubbing, No Cyanosis and No Edema
Skin: Negative Rash
Neuro: Awake, Alert, Oriented (To name only) and Nonfocal/Grossly Intact
--- NOTE | 2025-04-30 11:38 | W.PN.ID1 ---
Date of Service
Date of Service: April 30, 2025
Today's Communication
Continue Unasyn for now.
Assessment / Plan
# Cavitary pneumonia
# Leukocytosis - resolved
# Mental status change improving
- Possible source of cavitary PNA from poor dentition
- TTE: no vege
- Sputum cx - unable to produce
- blood cx's x 4 neg to date
- Repeat CT chest - improving cavitary lesion; increase size of pulm nodules and left pleural effusion.
Pleural effusion may be too small for safe thoracentesis, per Pulm.
-Continue Unasyn 3g IV q6.
- At time of dc, transition to Augmentin 875mg po bid x 4 to [address] chestin 4 weeks.
Chief Complaint
-: Pneumonia
Subjective / Review of Systems
Pleuritic pain better.
Vital Signs / Physical Exam
Vital Signs
Vital Signs
Temp Pulse Resp BP Pulse Ox
98.1 F 97 18 178/107 97
04/30/25 07:10 04/30/25 07:10 04/30/25 07:10 04/30/25 07:10 04/30/25 07:10
Physical Exam
Constitutional: No Acute Distress
Cardiovascular: Regular Rate and S1/S2
Pulmonary: Clear
Gastrointestinal: Soft, Non Tender, Non Distended and Normal Bowel Sounds
Extremities: Negative Edema
Neurological: AO x 3
Objective Data
Lab Data
Lab Results
04/30/25 06:44
04/30/25 06:44
ESR 20 mm/hour (0-20) 04/27/25 05:30
Estimated Creat Clear 60 ml/min 04/30/25 06:44
Total Bilirubin 1.5 mg/dl (0.2-1.3) H 04/26/25 16:59
AST 29 U/L (17-59) 04/26/25 16:59
ALT 21 U/L (0-50) 04/26/25 16:59
Alkaline Phosphatase 60 U/L (38-126) 04/26/25 16:59
C-Reactive Protein 227.50 mg/L (0.0-10.00) H 04/27/25 05:30
Most recent labs reviewed.
Micro Results:
04/26/25 20:45 Blood Culture - Preliminary
Blood/Venous No Growth in 72 hours- Final report to follow
04/26/25 20:53 Blood Culture - Preliminary
Blood/Venous No Growth in 72 hours- Final report to follow
04/26/25 20:26 Blood Culture - Preliminary
Blood/Venous No Growth in 72 hours- Final report to follow
04/26/25 20:31 Blood Culture - Preliminary
Blood/Venous No Growth in 72 hours- Final report to follow
04/26/25 22:35 Nasal Screen MRSA (PCR) - Final
Nose MRSA not detected - performed by PCR methodology.
04/26/25 23:07 Legionella Urinary Antigen - Final
Urine Negative for Legionella pneumophila Serogroup 1 antigen.
A negative result does not rule out the possiblity of
Legionella infection due to other serogroups or species of
Legionella. Clinical correlation is recommended.
Streptococcus pneumoniae Antigen (M - Final
Negative for Streptococcus pneumoniae antigen.
A negative result does not exclude infection with
Streptococcus pneumoniae. Clinical correlation is
recommended.
04/30/25 CT chest: Again seen are multiple scattered nodules/opacities within the lungs, likely infectious or inflammatory in etiology. Most nodules appear slightly increased in size compared to the prior CT. Cavitary foci within several of these
nodules appear improved. Interval worsening of small left pleural effusion.
04/26/25 CTA chest: No evidence of aortic dissection. Several bilateral cavitary lesions throughout the lungs likely infectious in etiology. Repeat exam in a couple weeks following treatment is recommended to confirm improvement or resolution.
Findings suggesting moderate left lower lobe pneumonia. Tiny bilateral pleural effusions, left larger than right.
Care Review
Plan reviewed with: Physician (Dr. Yo)
--- NOTE | 2025-04-30 11:44 | PTCARENOTE ---
Patient OOb ambulating in room with RN. Patient oriented to self only. Patient states, 'I need to go.' Patient in jorden chair with air cushion in place. Patient is a bit anxious, but cooperative at present. Call maier in reach, bed alarm maintained.
--- NOTE | 2025-04-30 13:30 | PTCARENOTE ---
Patient oriented to self only. Patient making frequent attempts to leave his room and go home. Patient reoriented and placed in jorden chair. Patient is able to remove table from jorden chair and climb out.
--- NOTE | 2025-04-30 13:39 | W.PN.PUL3 ---
Today's Communication / Plan
-
- Continue antibiotics as per infectious disease service, anticipate 4 to 6 weeks of antimicrobial therapy
- Outpatient follow-up with pulmonary clinic in about 4 weeks time, will pursue follow-up imaging to ensure resolution
- Pulmonary team will sign off, please call as needed
Assessment
-
Patient is an 84-year-old gentleman who is pleasantly confused during my evaluation hence history was mostly obtained from review of records as well as discussion with the primary hospitalist. Patient was brought to the hospital on 04/26 for
concern of pleuritic chest pain. Patient overall has been fairly healthy and lives by himself and independent. Workup included a chest x-ray followed by a CTA which was negative for pulmonary embolism but did show multiple cavitary areas
concerning for pneumonia as well as left lower lobe consolidation with trace pleural effusion. Patient was admitted to the hospital and started on broad-spectrum antibiotics, infectious disease service was also consulted. In view of cavitary
pneumonia, pulmonary consultation was requested for further input.
No reported history of alcoholism or heavy smoking. No reported history of recent syncope or passing out. He has had prior episodes of syncope and was evaluated by a physician about a year ago with negative workup as per records.
#1. Multi focal cavitary lesions along with left lower lobe pneumonia and suspect parapneumonic effusion
- Infectious etiology seems to be most likely. Chronic aspiration in differential diagnosis.
- Blood cultures negative so far. Legionella and pneumococcal antigen negative. MRSA screen negative.
- Patient unable to produce sputum. Sputum induction was attempted with hypertonic saline but patient was not able to produce specimen for sputum cultures as well as AFB screening. Considering the anatomy distribution of lesions as well as
consolidative left lower lobe, pretest probability of AFB related disease is low
- Patient is afebrile now, WBC count is normal. Transition to Unasyn..
- Infectious disease service on case
- Follow-up imaging reviewed today, cavitary component overall decreased, slight increase in some infiltrates, slight increase in pleural effusion however still too small for safe thoracentesis.
- Considering white count has normalized, patient saturating well on room air, symptomatically improved and decreasing cavitary size, favor continuing current antibiotics as recommended by infectious disease service for 4 to 6 weeks. Will proceed
with a 4-week follow-up imaging, outpatient follow-up in clinic.
#2. Pleurisy
- Pleuritic, left-sided, pain related to left lower consolidation along with trace pleural effusion likely parapneumonic
- Comfortable this morning, able to take a deep breath without any discomfort.
- Pleural effusion reviewed on CT scan, is very small for a safe thoracentesis, will plan for a 4-week follow-up imaging as outpatient
Other medical diagnoses:
- Cognitive impairment versus developing dementia
- Hyponatremia
- JANAK with underlying chronic kidney disease on admission
Total time spent on this consultation/encounter _45___ minutes which includes review of history, physical exam, medications, laboratory data, personal review of imaging, extensive review of outpatient records, discussion with care team and
respiratory therapy.
Data:
CT Chest 04/2025: No evidence of aortic dissection.
Several bilateral cavitary lesions throughout the lungs likely infectious in etiology. Repeat exam in a couple weeks following treatment is recommended to confirm improvement or resolution.
Findings suggesting moderate left lower lobe pneumonia.
Tiny bilateral pleural effusions, left larger than right.
Mild right lower lobe and lingular atelectasis versus scarring
Stress ECHO 10/2021: Normal Stress Echocardiogram with normal hemodynamic response to exercise.
A treadmill Exercise Stress Echocardiogram was completed. Blood pressure, heart
rate and ECG tracings were obtained with each Javan protocol stage completed.
Pre-exercise two-dimensional transthoracic echocardiogram evaluation and post-
exercise two-dimensional transthoracic echocardiogram evaluation images were
obtained.
Subjective Data
-
Date of Service:
Date of Service: April 30, 2025
Subjective:
Patient comfortably sitting in chair, in no acute distress. Saturating well on room air
Review of Systems
Genitourinary: Other (Limited by patient cognitive deficit)
Objective Data
Data Reviewed
Vital Signs / I&O / Oxygen:
Vital Signs
Temp Pulse Resp BP Pulse Ox
98.1 F 97 18 178/107 97
04/30/25 07:10 04/30/25 07:10 04/30/25 07:10 04/30/25 07:10 04/30/25 07:10
Intake and Output
04/29/25 04/30/25 05/01/25
06:59 06:59 06:59
Intake Total 1380 / 1380 600 / 600
Output Total 490 / 490 2300 / 2300
Balance 890 / 890 -1700 / -1700
SaO2 97
Physical Exam
General: Comfortable
HEENT: Normocephalic
Cardiovascular: S1-S2
Respiratory: Clear
GI: Soft and Non Distended
Neurology: Awake and Alert
Labs/Micro/Reports
Lab Data
04/30/25 06:44
04/30/25 06:44
Microbiology
04/26/25 20:45 Blood/Venous Blood Culture - Preliminary
No Growth in 72 hours- Final report to follow
04/26/25 20:53 Blood/Venous Blood Culture - Preliminary
No Growth in 72 hours- Final report to follow
04/26/25 20:26 Blood/Venous Blood Culture - Preliminary
No Growth in 72 hours- Final report to follow
04/26/25 20:31 Blood/Venous Blood Culture - Preliminary
No Growth in 72 hours- Final report to follow
04/26/25 22:35 Nose Nasal Screen MRSA (PCR) - Final
MRSA not detected - performed by PCR methodology.
--- NOTE | 2025-04-30 15:01 | CM ---
CM following re: discharge planning.
Reviewed pt's chart, met with pt and pt's son Norman at bedside.
Per MD pt will need [facility] placement due to cognition.
Updated PT and OT evaluation noted - home PT/OT recommended.
Per son Norman, he is very disapppointed regarding so quickly pt's declined and he stated he will not be able to care for his father at home because he works during day and it will nbe unsafe to leave his father at home alone and he requested to find a
SNF for a joint terminal attack controller care in [facility]. A list of SNFs in [facility] provided and son preferred following SNFs: [facility], [facility] or [facility].
A referral to above SNFs made. Awaiting for determination. m
D/C plan: preferred and accepted SNF for a [facility] care.
CM will follow to assist pt with discharge to a preferred SNF for a LTC.
[2025-04-30 15:36] VITALS: BP 113/70
--- NOTE | 2025-04-30 16:00 | PTCARENOTE ---
Patient with jorden chair restraint. Patient removed restraint multiple times. Patient found putting a Tupperware container on jorden chair alarm while holding it down with his hand to prevent alarm from sounding, while he stood beside the jorden chair.
Drilling Contractor made aware and a 1:1 was initiated and restraints were discontinued at 1600.
[2025-04-30] MEDS: LOVENOX 40 MG SC (18:38)
[2025-04-30] MEDS: SEROQUEL 25 MG PO (22:30)
[2025-04-30 23:00] VITALS: BP 134/67
[2025-05-01] MEDS: UNASYN IV ×4 (05:31→23:18)
[2025-05-01 07:00] VITALS: BP 126/85
[2025-05-01 07:10] LABS: % Basophils 0.6 % (0-2); % Immature Granulocytes 1.6 % (0-0.5); % Monocytes 9.2 % (1.7-9.3); % Neutrophils 75.6 % (42.2-75.2); Absolute Basophils 0.1 10^3/uL (0-0.2); Absolute Eosinophils 0.3 10^3/uL (0-0.7); Absolute Immature Granulocytes 0.1 10^3/uL (0-0.05); Absolute Lymphocytes 0.8 10^3/uL (1.2-3.4); Absolute Monocytes 0.8 10^3/uL (0.1-0.6); Absolute Neutrophils 6.2 10^3/uL (1.4-6.5); Hematocrit 33.1 % (39.0-52.0); Hemoglobin 11.5 g/dL (13.0-18.0); Mean Corp Hgb Conc. 34.7 g/dL (33.0-37.0); Mean Corpuscular Hgb 31.3 pg (27.0-31.0); Mean Corpuscular Volume 89.9 fL (80.0-94.0); Mean Platelet Volume 9.9 fL (7.4-10.4); Nucleated Red Blood Cells % 0 % (-); Platelet Count 243 10^3/uL (130-400); Red Blood Cell Count 3.68 10^6/uL (4.70-6.10); Red Cell Dist. Width 12.3 % (11.5-14.5); White Blood Cell Count 8.3 10^3/uL (4.8-10.8)
[2025-05-01 08:01] LABS: Blood Urea Nitrogen 11 mg/dl (9-20); Calcium 9.2 mg/dl (8.4-10.2); Carbon Dioxide 23 mmol/L (22-30); Chloride 110 mmol/L (98-107); Estimated Creatinine Clearance 55 ml/min; Glucose 100 mg/dl (70-99); Potassium 3.5 mmol/L (3.5-5.1); Sodium 139 mmol/L (135-145); eGFR > 60.00
[2025-05-01] MEDS: VITAMIN D3 (cholecalciferol) 50 MCG PO (08:16)
[2025-05-01 11:12] VITALS: BP 125/71; BP 143/95; BP 148/81; PULSE 82; PULSE 87; PULSE 94
--- NOTE | 2025-05-01 12:51 | PTCARENOTE ---
Patient with urinary frequency. Patient bladder scanned for 97ml. Patient continues to make multiple attempts to get OOB without calling. Patient is pleasantly confused, follows commands, answers questions appropriately, occasional word salad and
difficulty finding the right word at times. Patient needs frequent redirection (every 30 mins). Patient reoriented multiple times, but he cannot remember he is in the hospital. 1:1 maintained for patient safety.
--- NOTE | 2025-05-01 13:28 | W.PN.ID1 ---
Date of Service
Date of Service: May 01, 2025
Today's Communication
Continue Unasyn 3g IV q6 (d6) through 05/30/25.
Follow weekly CBC/diff, CMP while on IV abx.
Repeat CT chest on 4 weeks.
Assessment / Plan
# Cavitary pneumonia
# Leukocytosis - resolved
# Mental status change improving
- Possible source of cavitary PNA from poor dentition
- TTE: no vege
- Sputum cx - unable to produce
- blood cx's x 4 neg to date
- Repeat CT chest - improving cavitary lesion; increase size of pulm nodules and left pleural effusion.
Pleural effusion too small for safe thoracentesis, per Pulm.
- Given severity of Chest CT findings favor continue IV abx over po abx.
- Continue Unasyn 3g IV q6 (d6) through 05/30/25.
Follow weekly CBC/diff, CMP while on IV abx.
repeat CT chest on 4 weeks.
Chief Complaint
-: Pneumonia
Subjective / Review of Systems
+ cough.
Vital Signs / Physical Exam
Vital Signs
Vital Signs
Temp Pulse Resp BP Pulse Ox
98.3 F 82 16 126/85 96
05/01/25 07:00 05/01/25 07:00 05/01/25 07:00 05/01/25 07:00 05/01/25 08:47
Physical Exam
Constitutional: No Acute Distress
Cardiovascular: Regular Rate and S1/S2
Pulmonary: Clear
Gastrointestinal: Soft, Non Tender, Non Distended and Normal Bowel Sounds
Extremities: Negative Edema
Neurological: Awake and Alert
Objective Data
Lab Data
Lab Results
05/01/25 06:18
05/01/25 06:18
ESR 20 mm/hour (0-20) 04/27/25 05:30
Estimated Creat Clear 55 ml/min 05/01/25 06:18
Total Bilirubin 1.5 mg/dl (0.2-1.3) H 04/26/25 16:59
AST 29 U/L (17-59) 04/26/25 16:59
ALT 21 U/L (0-50) 04/26/25 16:59
Alkaline Phosphatase 60 U/L (38-126) 04/26/25 16:59
C-Reactive Protein 227.50 mg/L (0.0-10.00) H 04/27/25 05:30
Most recent labs reviewed.
Micro Results:
04/26/25 20:45 Blood Culture - Preliminary
Blood/Venous No Growth in 4 days- Final report to follow
04/26/25 20:53 Blood Culture - Preliminary
Blood/Venous No Growth in 4 days- Final report to follow
04/26/25 20:26 Blood Culture - Preliminary
Blood/Venous No Growth in 4 days- Final report to follow
04/26/25 20:31 Blood Culture - Preliminary
Blood/Venous No Growth in 4 days- Final report to follow
04/26/25 22:35 Nasal Screen MRSA (PCR) - Final
Nose MRSA not detected - performed by PCR methodology.
04/26/25 23:07 Legionella Urinary Antigen - Final
Urine Negative for Legionella pneumophila Serogroup 1 antigen.
A negative result does not rule out the possiblity of
Legionella infection due to other serogroups or species of
Legionella. Clinical correlation is recommended.
Streptococcus pneumoniae Antigen (M - Final
Negative for Streptococcus pneumoniae antigen.
A negative result does not exclude infection with
Streptococcus pneumoniae. Clinical correlation is
recommended.
04/30/25 CT chest: Again seen are multiple scattered nodules/opacities within the lungs, likely infectious or inflammatory in etiology. Most nodules appear slightly increased in size compared to the prior CT. Cavitary foci within several of these
nodules appear improved. Interval worsening of small left pleural effusion.
04/26/25 CTA chest: No evidence of aortic dissection. Several bilateral cavitary lesions throughout the lungs likely infectious in etiology. Repeat exam in a couple weeks following treatment is recommended to confirm improvement or resolution.
Findings suggesting moderate left lower lobe pneumonia. Tiny bilateral pleural effusions, left larger than right.
--- NOTE | 2025-05-01 13:42 | VATNOTE ---
[facility] on hold pending [facility] authorization. Discussed with Dr. koenig.
[2025-05-01 14:14] VITALS: BP 157/89; PULSE 86
--- NOTE | 2025-05-01 14:15 | CM ---
CM following re: discharge planning.
Reviewed pt's chart, met with pt and pt's son Norman at bedside.
According to MD pt is medically stable to be discharged. Both pt and his son are aware.
Updated PT and OT evaluation noted - SNF level of care recommended. Speech therapy following and skilled services indicated.
According to ID pt will need 4-6 weeks of Unasyn 3g IV Q6. PICC line will be placed today.
Both pt and his son are aware that [facility] offered a bed and they expressed their agreement to go to [facility] for a short term rehab and probably transition to a senior care care.
CM initiated an auth with [facility] for SNF level of care at [facility], spoke to brand representative Constanza. Pending auth:[id number]
Requested pt's clinical faxed to [facility] at [phone]. Awaiting for an auth.
[facility] nursing report: [id number]
Discharge instructions fax: [phone]
D/C plan: [facility] when medically stable and an auth is obtained. Awaiting for an auth.
CM will follow to assist pt with discharge to [facility]
--- NOTE | 2025-05-01 14:18 | W.PN.HOSP.TC ---
Today's Communication/Plan
-
Continue IV antibiotics
Discharge planing with nursing facility placed
Assessment / Plan
Assessment / Plan
Impression:
Presentation with altered mental status and left-sided pleuritic chest pain.
Bilateral cavitary pneumonia.
Toxic metabolic encephalopathy.
Hyponatremia.
Acute kidney injury
Agitation
Plan
Bilateral cavitary pneumonia.
No evidence for systemic infection or sepsis
CT scan of the chest negative for pulmonary embolism consistent with bilateral cavitary lesions and left lower lobe infiltrate with minimal bilateral pleural effusion.
Poor dentition (possible source of the cavitary pneumonia)
Speech and swallow evaluation with no overt aspiration
Echocardiogram done to rule out embolic lesions -- no vegetations.
Given altered mental status, aphasia, and left facial droop brain imaging with MRI was done with unremarkable findings
Continue IV antibiotics following blood cultures (no growth to date) -- Zosyn recently narrowed to Unasyn -- continue Unasyn
Other differentials including aspergillosis, nocardiosis noted. Low risk for TB.
Strep and Legionella antigens negative.
Pulmonary/ID evaluation
Follow-up CT scan of the chest with bilateral cavitary lesions, persistent left lower consolidation pleural effusion likely parapneumonic.
Toxic metabolic encephalopathy likely multifactorial in settings of acute infection, acute kidney injury and hyponatremia.
Agitation likely related to hospital-acquired delirium
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
Patient with no prior history of cardiovascular disease including CVA.
CT scan of the head with no acute abnormalities.
MRI of the brain with no acute abnormalities
Initiated on Seroquel 25 mg p.o. at bedtime/25 mg daily as needed for agitation. Overall improved. Monitor QTc interval while on Seroquel.
JANAK
Hypovolemic hyponatremia.
Sodium level and creatinine improving with IV fluids
Continue to monitor closely.
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
Follow-up outpatient
Full code.
DVT prophylaxis Lovenox
Anticipated Discharge: 24 - 48 hours
Subjective/Interval History
-
Date of Service: May 01, 2025
Objective Data
-
Labs:
Laboratory Results
05/01/25
06:18
WBC 8.3
Hgb 11.5 L
Hct 33.1 L
Plt Count 243
Sodium 139
Potassium 3.5
Chloride 110 H
Carbon Dioxide 23
BUN 11
Creatinine 1.1
Glucose 100 H
Calcium 9.2
Vital Signs:
Vital Signs
Temp Pulse Resp BP Pulse Ox
98.3 F 82 16 126/85 96
05/01/25 07:00 05/01/25 07:00 05/01/25 07:00 05/01/25 07:00 05/01/25 08:47
I&O
04/30/25 05/01/25 05/02/25
06:59 06:59 06:59
Intake Total 600 / 600 1500 / 1500
Output Total 2300 / 2300 500 / 500
Balance -1700 / -1700 1000 / 1000
Physical Exam
-
General: Well Developed and No Apparent Distress
HEENT: Normocephalic, Atraumatic and Moist Mucous Membranes
Respiratory: Clear to Auscultation
Cardiac: Regular Rhythm and S1/S2; Negative Murmur, Rub or Gallop
GI: Soft, Nontender, Nondistended and Normal Bowel Sounds; Negative Organomegaly
Rectal: Deferred by Provider
Musculoskeletal: No Clubbing, No Cyanosis and No Edema
Skin: Negative Rash
Neuro: Awake, Alert, Oriented (To name only) and Nonfocal/Grossly Intact
[2025-05-01 14:28] VITALS: BP 157/89
[2025-05-01 15:00] VITALS: BP 129/88
[2025-05-01] MEDS: LOVENOX 40 MG SC (17:54)
[2025-05-01] MEDS: SEROQUEL 25 MG PO (22:11)
[2025-05-01 23:24] VITALS: BP 144/77
[2025-05-02] MEDS: UNASYN IV ×4 (05:50→23:14)
[2025-05-02 07:00] VITALS: BP 119/69
[2025-05-02] MEDS: VISBIOME 2 CAP PO (07:48)
[2025-05-02] MEDS: VITAMIN D3 (cholecalciferol) 50 MCG PO (07:48)
--- NOTE | 2025-05-02 10:47 | CM ---
Addendum entered by Josh Sneed 05/02/25 14:42:
CM called [facility] [phone] to check the status of a request for an auth and was told that a request went to [employer] review.
Original Note:
CM following re: discharge planning.
Reviewed pt's chart, met with pt.
According to MD pt is medically stable to be discharged.
Pending auth number is: [id number]
CM called [facility] and community care transition serving [facility] [phone] to check the status of a request for an auth and was told they did not receive pt's clinical.
Requested pt's clinical faxed to [facility] at [phone] yesterday.
CM re-faxed pt's clinical to [facility] at the same fax [phone]. Awaiting for an authorization
[facility] nursing report: [phone]
Discharge instructions fax: [phone]
D/C plan: [facility] when an auth is obtained. Awaiting for an auth.
CM will follow to assist pt with discharge to [facility]
[2025-05-02 15:00] VITALS: BP 118/76
--- NOTE | 2025-05-02 15:40 | W.PN.ID1 ---
Date of Service
Date of Service: May 02, 2025
Today's Communication
- Continue Unasyn 3g IV q6 (d7) through 05/30/25.
Follow weekly CBC/diff, CMP while on IV abx.
Repeat CT chest on 4 weeks.
Assessment / Plan
# Cavitary pneumonia
# Leukocytosis - resolved
# Mental status change improving
- Possible source of cavitary PNA from poor dentition
- TTE: no vege
- Sputum cx - unable to produce
- blood cx's x 4 neg to date
- Repeat CT chest - improving cavitary lesion; increase size of pulm nodules and left pleural effusion.
Pleural effusion too small for safe thoracentesis, per Pulm.
- Given severity of Chest CT findings favor continue IV abx over po abx.
- Continue Unasyn 3g IV q6 (d7) through 05/30/25.
Follow weekly CBC/diff, CMP while on IV abx.
repeat CT chest on 4 weeks.
Chief Complaint
-: Pneumonia
Subjective / Review of Systems
Feels ok.
Vital Signs / Physical Exam
Vital Signs
Vital Signs
Temp Pulse Resp BP Pulse Ox
98.4 F 73 16 118/76 95
05/02/25 15:00 05/02/25 15:00 05/02/25 15:00 05/02/25 15:00 05/02/25 15:00
Physical Exam
Constitutional: No Acute Distress and Comfortable
Cardiovascular: Regular Rate and S1/S2
Pulmonary: Other (decreased BS left base)
Gastrointestinal: Soft, Non Tender, Non Distended and Normal Bowel Sounds
Genito-Urinary: Negative CVA Tenderness
Objective Data
Lab Data
Lab Results
05/01/25 06:18
05/01/25 06:18
ESR 20 mm/hour (0-20) 04/27/25 05:30
Estimated Creat Clear 55 ml/min 05/01/25 06:18
Total Bilirubin 1.5 mg/dl (0.2-1.3) H 04/26/25 16:59
AST 29 U/L (17-59) 04/26/25 16:59
ALT 21 U/L (0-50) 04/26/25 16:59
Alkaline Phosphatase 60 U/L (38-126) 04/26/25 16:59
C-Reactive Protein 227.50 mg/L (0.0-10.00) H 04/27/25 05:30
Most recent labs reviewed.
Micro Results:
04/26/25 20:45 Blood Culture - Final
Blood/Venous No Growth - Final Report
04/26/25 20:53 Blood Culture - Final
Blood/Venous No Growth - Final Report
04/26/25 20:31 Blood Culture - Final
Blood/Venous No Growth - Final Report
04/26/25 20:26 Blood Culture - Final
Blood/Venous No Growth - Final Report
04/26/25 22:35 Nasal Screen MRSA (PCR) - Final
Nose MRSA not detected - performed by PCR methodology.
04/26/25 23:07 Legionella Urinary Antigen - Final
Urine Negative for Legionella pneumophila Serogroup 1 antigen.
A negative result does not rule out the possiblity of
Legionella infection due to other serogroups or species of
Legionella. Clinical correlation is recommended.
Streptococcus pneumoniae Antigen (M - Final
Negative for Streptococcus pneumoniae antigen.
A negative result does not exclude infection with
Streptococcus pneumoniae. Clinical correlation is
recommended.
04/30/25 CT chest: Again seen are multiple scattered nodules/opacities within the lungs, likely infectious or inflammatory in etiology. Most nodules appear slightly increased in size compared to the prior CT. Cavitary foci within several of these
nodules appear improved. Interval worsening of small left pleural effusion.
04/26/25 CTA chest: No evidence of aortic dissection. Several bilateral cavitary lesions throughout the lungs likely infectious in etiology. Repeat exam in a couple weeks following treatment is recommended to confirm improvement or resolution.
Findings suggesting moderate left lower lobe pneumonia. Tiny bilateral pleural effusions, left larger than right.
--- NOTE | 2025-05-02 15:52 | W.PN.HOSP.TC ---
Today's Communication/Plan
-
Continue antibiotics
Ongoing disposition efforts with [facility] to [facility] on IV antibiotics
Assessment / Plan
Assessment / Plan
Impression:
Presentation with altered mental status and left-sided pleuritic chest pain.
Bilateral cavitary pneumonia.
Toxic metabolic encephalopathy.
Hyponatremia.
Acute kidney injury
Agitation
Plan
Bilateral cavitary pneumonia.
No evidence for systemic infection or sepsis
CT scan of the chest negative for pulmonary embolism consistent with bilateral cavitary lesions and left lower lobe infiltrate with minimal bilateral pleural effusion.
Poor dentition (possible source of the cavitary pneumonia)
Speech and swallow evaluation with no overt aspiration
Echocardiogram done to rule out embolic lesions -- no vegetations.
Given altered mental status, aphasia, and left facial droop brain imaging with MRI was done with unremarkable findings
Continue IV antibiotics following blood cultures (no growth to date) -- Zosyn recently narrowed to Unasyn -- continue Unasyn
Other differentials including aspergillosis, nocardiosis noted. Low risk for TB.
Strep and Legionella antigens negative.
Pulmonary/ID evaluation appreciated
Follow-up CT scan of the chest with bilateral cavitary lesions, persistent left lower consolidation pleural effusion likely parapneumonic.
Toxic metabolic encephalopathy likely multifactorial in settings of acute infection, acute kidney injury and hyponatremia.
Agitation likely related to hospital-acquired delirium
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
Patient with no prior history of cardiovascular disease including CVA.
CT scan of the head with no acute abnormalities.
MRI of the brain with no acute abnormalities
Initiated on Seroquel 25 mg p.o. at bedtime/25 mg daily as needed for agitation. Overall improved. Monitor QTc interval while on Seroquel.
JANAK
Hypovolemic hyponatremia.
Sodium level and creatinine improving with IV fluids
Continue to monitor closely.
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
Follow-up outpatient
Full code.
DVT prophylaxis Lovenox
Anticipated Discharge: Within 24 hours
Subjective/Interval History
-
Date of Service: May 02, 2025
Objective Data
-
Vital Signs:
Vital Signs
Temp Pulse Resp BP Pulse Ox
98.4 F 73 16 118/76 95
05/02/25 15:00 05/02/25 15:00 05/02/25 15:00 05/02/25 15:00 05/02/25 15:00
I&O
05/01/25 05/02/25 05/03/25
06:59 06:59 06:59
Intake Total 1500 / 1500 1920 / 1920
Output Total 500 / 500 1615 / 1615
Balance 1000 / 1000 305 / 305
Physical Exam
-
General: Well Developed and No Apparent Distress
HEENT: Normocephalic, Atraumatic and Moist Mucous Membranes
Respiratory: Clear to Auscultation
Cardiac: Regular Rhythm and S1/S2; Negative Murmur, Rub or Gallop
GI: Soft, Nontender, Nondistended and Normal Bowel Sounds; Negative Organomegaly
Rectal: Deferred by Provider
Musculoskeletal: No Clubbing, No Cyanosis and No Edema
Skin: Negative Rash
Neuro: Awake, Alert, Oriented (To name only) and Nonfocal/Grossly Intact
[2025-05-02] MEDS: LOVENOX 40 MG SC (17:13)
[2025-05-02] MEDS: SEROQUEL 25 MG PO (22:01)
[2025-05-02 23:22] VITALS: BP 154/85
[2025-05-03] MEDS: UNASYN IV ×2 (05:45→12:05)
[2025-05-03 07:00] VITALS: BP 129/77
[2025-05-03] MEDS: VISBIOME 2 CAP PO (07:50)
[2025-05-03] MEDS: VITAMIN D3 (cholecalciferol) 50 MCG PO (07:50)
[2025-05-03] MEDS: SEROQUEL 25 MG PO (07:50)
--- NOTE | 2025-05-03 10:30 | CM ---
Addendum entered by Josh Sneed 05/03/25 16:02:
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
Both pt, his son Norman and [facility] liaison are aware. PICC line information faxed to [facility] earlier today.
Addendum entered by Josh Sneed 05/03/25 10:39:
Both pt and his son Norman are aware of discharge, expressed their agreement. IMM reviewed, placed on chart, prt has a co[py.
Original Note:
CM following re: discharge planning.
Reviewed pt's chart, met with pt and pt's son Norman at bedside.
According to MD pt is medically stable to be discharged.
CM called [facility] serving [facility] [phone] to check the status of a request for an auth and was told they did not receive pt's clinical. CM asked to connect to assigned employment evaluator/case manager. CM spoke to Gris who took verbally
pt's clinical and after 10 minutes CM received a phone call from [facility] abrasives sales representative Michelle who provided authorization information.
Pt is approved for 5 initial days for S level of care at [facility] from today 05/03/25 till 05/07/26 with LCD and NRD 05/07/25. Auth: [id number]. Reviewer: Frieda Baca ph: [phone], fax: [phone]. Reference number for call:
[id number].
[facility] liaison is informed that on pt's insurance record pt's first name is Alegria even legally Alegria is pt's middle name.
Auth information forwarded to [facility] liaison and she confirmed that pt is accepted for admission today.
to arrange [facility] transport, [facility] .
[facility] nursing report: [phone]
Discharge instructions fax: [phone]
D/C plan: [facility]
--- NOTE | 2025-05-03 11:50 | W.DCSUMMARY ---
Discharge Summary
Discharge Data
Date of Admission: 04/26/25
Date of Discharge: 05/03/25
-
Pending Results: No
Hospital Course
Impression:
Presentation with altered mental status and left-sided pleuritic chest pain.
Bilateral cavitary pneumonia.
Toxic metabolic encephalopathy.
Hyponatremia.
Acute kidney injury
Agitation
Plan
Bilateral cavitary pneumonia.
No evidence for systemic infection or sepsis
CT scan of the chest negative for pulmonary embolism consistent with bilateral cavitary lesions and left lower lobe infiltrate with minimal bilateral pleural effusion.
Poor dentition (possible source of the cavitary pneumonia)
Speech and swallow evaluation with no overt aspiration
Echocardiogram done to rule out embolic lesions -- no vegetations.
Given altered mental status, aphasia, and left facial droop brain imaging with MRI was done with unremarkable findings
Continue IV antibiotics following blood cultures (no growth to date) -- Zosyn recently narrowed to Unasyn -- continue Unasyn with plan to continue IV antibiotics at rehab facility
Follow-up CT scan of the chest with bilateral cavitary lesions, persistent left lower consolidation pleural effusion likely parapneumonic.
Outpatient pulmonology follow-up with repeat imaging
Toxic metabolic encephalopathy likely multifactorial in settings of acute infection, acute kidney injury and hyponatremia.
Agitation likely related to hospital-acquired delirium
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
Patient with no prior history of cardiovascular disease including CVA.
CT scan of the head with no acute abnormalities.
MRI of the brain with no acute abnormalities
Initiated on Seroquel 25 mg p.o. at bedtime/25 mg daily as needed for agitation. Overall improved. Monitor QTc interval while on Seroquel.
JANAK
Improved with IV hydration
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
Follow-up outpatient
Full code.
DVT prophylaxis Lovenox
Discharge Plan
-
Patient Disposition: Home (Routine Discharge)
Discharge Diagnosis/Procedures: Bilateral cavitary pneumonia
Dementia
Condition: Good
Diet: Regular
Referrals:
Nargis Yo MD [Active, Pulmonary Medicine] - in one month
Horace Mccarthy DO [Family Provider, Internal Medicine]
Prescriptions:
New
Ampicillin/Sulbactam 3 G [Unasyn] 3 GM
0.9% Sodium Chloride 100 ml [Nss] 100 ML
240 mls/hr IV Q6H
through 05/30/2025
Ordered By: Otis Beckman MD
Last Taken: 05/03/25 05:45 120 mls
quetiapine 25 mg Tablet
25 mg PO HS Qty: 30 0RF
acetaminophen 325 mg Tablet
650 mg PO Q4HPRN PRN (Reason: if temp > 101 F) Qty: 30 0RF
Continued
cholecalciferol (vitamin D3) 50 mcg (2,000 unit) Capsule
50 mcg PO DAILY
Discharge Orders:
Discharge Patient (As Directed); Ordered 05/03/25
Ordered By: Otis Beckman
Discharge Date and Time
Print Language: [place]APORE[place]
[2025-05-03 15:00] VITALS: BP 142/87
== END 2025-05-03 16:56 | DRG 193 ==
LOC: 2 NORTH 21:42
PROVIDERS: Hospitalist; Radiology Diagnostic Radiology; ADMITTING PHYSICIAN Internal Medicine; ATTENDING PHYSICIAN Internal Medicine; CONSULT PHYSICIAN Internal Medicine; CONSULT PHYSICIAN Internal Medicine Infectious Disease; EMERGENCY PHYSICIAN Emergency Medicine; FAMILY PHYSICIAN Internal Medicine
PROC: 02HV33Z Insertion of Infusion Device into Superior Vena Cava, Percutaneous Approach (ICD-10-PCS; 2025-05-03)
DX: J18.8 Other pneumonia, unspecified organism (principal); G92.8 Other toxic encephalopathy; J85.0 Gangrene and necrosis of lung; E87.1 Hypo-osmolality and hyponatremia; N17.9 Acute kidney failure, unspecified; J90 Pleural effusion, not elsewhere classified; M50.021 Cervical disc disorder at C4-C5 level with myelopathy; M50.01 Cervical disc disorder with myelopathy, high cervical region; F03.911 Unspecified dementia, unspecified severity, with agitation; F05 Delirium due to known physiological condition; E86.1 Hypovolemia; N18.9 Chronic kidney disease, unspecified; M48.02 Spinal stenosis, cervical region; R45.1 Restlessness and agitation; E78.5 Hyperlipidemia, unspecified; R29.810 Facial weakness; Z60.2 Problems related to living alone; Z98.1 Arthrodesis status; Z78.1 Physical restraint status
CPT/HCPCS: 70450; 70551; 71045; 71046; 71250; 71275; 80048; 80053; 80202; 81003; 81015; 84439; 84443; 84484; 85025; 85027; 85379; 85652; 86140; 87040; 87070; 87449; 87641; 87899; 92523; 92526; 92610; 93005; 93306; 94640; 96365; 96367; 96375; 97116; 97163; 97167; 97530; 97535; 99285; Q9967

== ENCOUNTER → 2025-07-05 12:16 | Outpatient (REF) | payer OTHER, SELFPAY | LOC: RAD 12:16 | PROVIDERS: ATTENDING PHYSICIAN Internal Medicine | DX: J18.9 Pneumonia, unspecified organism (principal) | CPT/HCPCS: 71260; Q9967 ==